=== PATIENT | female | born 1955 | race Caucasian/White ===

== ENCOUNTER → 2016-06-04 | Outpatient (CLI) | payer OTHER ==
[~2016-06-04] MED LIST: CHOL100040 PO; CLON0.5T3 PO; CYAN10005 PO; CYCL10TA6 PO; DULO-24 PO; ESTR0.0510 TD; FRS/40 PO; GLC/500 PO; LAMO100T16 PO; LEVO200T6 PO; LOSA50TA6 PO; METHYL FOLATE PO; NAPR1TAB9 PO; OXCA300T PO; OXCA600T2 PO; POLYSOL50 OPL; PRED1SUS3 OPL; SPIR50TA2 PO; TRAM-10 PO; TRAZ100T29 PO; VALA1TAB2 PO; ZNTT/150 PO; ZOLP10TA6 PO
[2016-06-04 11:54] LABS: URINE APPEARANCE CLEAR (CLEAR); URINE BILIRUBIN NEG (NEG); URINE COLOR DK YELLOW; URINE NITRITE NEG (NEG); URINE PH 7.5 (4.5-7.5); URINE SPECIFIC GRAVITY 1.028 (1.000-1.030); UROBILINOGEN NEG (NEG)
[2016-06-04 12:00] LABS: MANUAL MICROSCOPIC REQUIRED? NO; REVIEW REQ? NO
== END | disposition home or self-care (01) ==
LOC: C.LABSPEC 11:23
PROVIDERS: ATTEND Obstetrics & Gynecology
DX: N89.8 Other specified noninflammatory disorders of vagina (principal); R39.9 Unspecified symptoms and signs involving the genitourinary system

== ENCOUNTER → 2016-06-16 | Outpatient (CLI) | payer OTHER ==
--- NOTE | 2016-06-16 12:33 | DIAGNOSTIC IMAGING REPORT ---
THYROID ULTRASONOGRAPHY CLINICAL HISTORY: Thyroid goiter COMPARISON STUDY: 07/25/2014 FINDINGS: The right lobe of the thyroid measures 4.9 x 1.5 x 1.3 cm. The left lobe measures 3.8 x 1.5 x 1.3 cm. There is a hypoechoic mid pole right lobe thyroid nodule measuring 5 x 5 x 3 mm. This has no suspicious characteristics. The previously described left lobe thyroid nodule is not delineated. There is slight heterogeneity of the gland echotexture, similar to the preceding study. IMPRESSION: Stable 5 mm right lobe thyroid nodule. No suspicious thyroid nodules are visualized. Electronically signed by: Rigoberto Rangel M.D. 06/16/2016 12:32 PM Dictated Date/Time: 06/16/2016 12:31 PM
== END | disposition home or self-care (01) ==
LOC: C.ULTR 11:42
PROVIDERS: ATTEND Internal Medicine Endocrinology, Diabetes & Metabolism
DX: E04.9 Nontoxic goiter, unspecified (principal)

== ENCOUNTER → 2017-05-14 | Outpatient (CLI) | payer OTHER | END | disposition home or self-care (01) | LOC: C.LABSPEC 17:31 | PROVIDERS: ATTEND Physician Assistant | DX: R30.0 Dysuria (principal); L29.8 Other pruritus ==

== ENCOUNTER → 2017-05-15 | Outpatient (CLI) | payer OTHER | END | disposition home or self-care (01) | LOC: C.LAB1850 11:01 | PROVIDERS: ATTEND Internal Medicine Endocrinology, Diabetes & Metabolism | DX: E03.9 Hypothyroidism, unspecified (principal) ==

== ENCOUNTER 2017-09-02 14:53 | Observation (INO) | payer OTHER ==
[~2017-09-02] VITALS: Ht 174 cm; Wt 101.6 kg
[~2017-09-02 14:53] MED LIST changes: +RANI150T85 PO; -ZNTT/150 PO
[2017-09-02] MEDS ORDERED: ASPIRIN 81 MG CHEW PO STA (15:26)
[2017-09-02 16:04] LABS: BASO % 0.3 %; BASO ABS # 0.03 K/uL (0-0.2); EOS % 1.3 %; EOS ABS # 0.12 K/uL (0-0.5); HEMATOCRIT 39.7 % (37-47); HEMOGLOBIN 13.7 g/dL (12.0-16.0); IG# 0.02 K/uL (0.00-0.02); LYMPH % 23.4 %; LYMPH ABS # 2.08 K/uL (1.2-3.4); MEAN CELL VOLUME 88.8 fL (80-100); MEAN CORPUSCULAR HEMOGLOBIN 30.6 pg (25-34); MEAN CORPUSCULAR HGB CONC 34.5 g/dl (32-36); MEAN PLATELET VOLUME 9.6 fL (7.4-10.4); MONO % 5.8 %; MONO ABS # 0.52 K/uL (0.11-0.59); NEUT ABS # 6.13 K/uL (1.4-6.5); PLATELET COUNT 244 K/uL (130-400); RED CELL DISTRIBUTION WIDTH CV 13.4 % (11.5-14.5); RED CELL DISTRIBUTION WIDTH SD 43.7 fL (36.4-46.3)
[2017-09-02 16:35] LABS: BLOOD UREA NITROGEN 14 mg/dl (7-18); CALCIUM 9.3 mg/dl (8.5-10.1); CARBON DIOXIDE 28 mmol/L (21-32); CREATININE 0.83 mg/dl (0.60-1.20); GLUCOSE 134 mg/dl (70-99); POTASSIUM 3.9 mmol/L (3.5-5.1); SODIUM 138 mmol/L (136-145)
[2017-09-02] MEDS ORDERED: CYAN1CAP4 PO (16:47)
[2017-09-02] MEDS ORDERED: 5-ME1POW15 PO (16:47)
[2017-09-02] MEDS ORDERED: CHOL1TAB12 PO (16:47)
[2017-09-02] MEDS ORDERED: ESCI10TA17 PO (16:47)
[2017-09-02] MEDS ORDERED: ZOLP5TAB6 PO (16:47)
[2017-09-02] MEDS ORDERED: LEVO175T PO (16:47)
--- NOTE | 2017-09-02 16:56 | DIAGNOSTIC IMAGING REPORT ---
LEFT LOWER EXTREMITY VENOUS DOPPLER HISTORY: Left leg swelling. COMPARISON STUDY: None. FINDINGS: There is normal compressibility, flow, and augmentation within the left lower extremity deep venous system. IMPRESSION: No DVT within the left lower extremity. Electronically signed by: Prashanth Bansal M.D. 09/02/2017 4:55 PM Dictated Date/Time: 09/02/2017 4:55 PM
--- NOTE | 2017-09-02 17:24 | EMERGENCY ROOM VISIT NOTE ---
History Report prepared by Marylu: Feliz Martinez Under the Supervision of: Dr. Arcenio Shaver M.D. First contact with patient: 15:23 Chief Complaint: SHORTNESS OF BREATH Stated Complaint: LEFT CALF PAIN, SOB, CHEST PAIN, REFERRED Nursing Triage Summary: triage note: Pt reports pain in left calf and shortness of breath since thursday. History of Present Illness The patient is a 62 year old female who presents to the Emergency Room with complaints of constant left calf pain beginning three days ago. She also complains of shortness of breath and left-sided chest pain. No radiation of the chest pain. Chest pain feels like pressure, moderate in nature. The patient was seen at an urgent care center and was referred to the ED for further evaluation. She believes she has a family history of blood clots. The patient denies modifying factors. She has a history of diabetes and hyperthyroidism. She denies recent travel. She is on an estrogen patch. No hemoptysis.the patient denies cough. Source of History: patient Onset: Three days ago Position: leg (left calf) Timing: constant Modifying Factors (Worsening): other (none) Modifying Factors (Relieving): other (none) Associated Symptoms: + chest pain (left-sided), + SOB, No cough Review of Systems See HPI for pertinent positives and negatives. A total of ten systems were reviewed and were otherwise negative. Past Medical & Surgical Medical Problems: (1) Anxiety (2) Anxiety (3) Arthritis, rheumatoid (4) Costochondritis (5) Depression (6) Diabetes (7) Fibromyalgia (8) HLD (hyperlipidemia) (9) HTN (hypertension) (10) Insomnia Surgical Problems: (1) H/O arthroscopic knee surgery (2) S/P hysterectomy (3) S/P knee replacement Family History No pertinent family history stated. Social History Smoking Status: Never Smoker Alcohol Use: none Marital Status: single Occupation Status: disabled Current/Historical Medications Scheduled 5-Methyltetrahydrofolate (Bulk (Methyl Folate), 15,000 MCG PO QAM Cholecalciferol (Vitamin D3), 3,000 UNITS PO QAM Cyanocobalamin (B-12), 5,000 MCG PO QAM Escitalopram (Lexapro), 10 MG PO DAILY Estradiol (Estradiol Transdermal System), 1 PATCH TD WK Lamotrigine (Lamictal), 100 MG PO BID Levothyroxine Sodium (Synthroid), 175 MCG PO QAM Losartan Potassium (Cozaar), 50 MG PO QAM Metformin Hcl (Glucophage), 1,000 MG PO BID Spironolactone (Aldactone), 50 MG PO QAM Trazodone Hcl (Trazodone), 150 MG PO HS Zolpidem Tartrate (Zolpidem Tartrate), 5 MG PO HS Scheduled PRN Cyclobenzaprine Hcl (Flexeril), 10 MG PO TID PRN for Muscle Spasms Furosemide (Lasix), 40 MG PO QAM PRN for FLUID RETENTION Naproxen (Aleve), 220 MG PO DAILY PRN for Pain Ranitidine (Zantac), 150 MG PO DAILY PRN for Indigestion Tramadol (Ultram), 50 MG PO Q6HR PRN PRN for Pain Valacyclovir Hcl (Valtrex), 1,000 MG PO HS PRN for OUTBREAK Allergies Coded Allergies: Buspirone (Verified Allergy, Severe, DYSPNEA, 09/02/17) Gabapentin (Verified Adverse Reaction, Severe, DIFFICULTY WALKING AND PAIN , 09/02/17) [place] (Verified Adverse Reaction, Severe, TOXIC, 09/02/17) Aripiprazole (Verified Adverse Reaction, Intermediate, UNCONTROLLABLE MUSCLE MOVEMENT, 09/02/17) Codeine (Verified Adverse Reaction, Intermediate, UPSET STOMACH, 09/02/17) Levofloxacin (Verified Adverse Reaction, Intermediate, MUSCLE PAIN; HEMATURIA, 09/02/17) Ziprasidone (Verified Adverse Reaction, Intermediate, UNCONTROLLABLE MUSCLE MOVEMENT, 09/02/17) Simvastatin (Verified Adverse Reaction, Mild, MUSCLE ACHES AND CRAMPING, ) Physical Exam Vital Signs Date Time Temp Pulse Resp B/P (MAP) Pulse Ox O2 Delivery O2 Flow Rate FiO2 09/02/17 16:14 82 09/02/17 16:00 86 18 133/79 96 Room Air 09/02/17 15:54 98 Room Air 09/02/17 15:54 98 Room Air 09/02/17 14:57 36.8 85 20 136/85 99 Room Air 09/02/17 14:56 99 Room Air Physical Exam Physical Exam GENERAL: She is oriented to person, place, and time. She appears well- developed and well-nourished. She does not appear distressed. ____ HENT: Exam performed. Head: Normocephalic and atraumatic. Right Ear: External ear normal. No mastoid tenderness. Left Ear: External ear normal. No mastoid tenderness. Mouth/Throat: The oropharynx is clear and moist. No trismus in the jaw. No dental abscesses or uvula swelling. No oropharyngeal exudate or tonsillar abscesses. ____ EYES: Conjunctivae and EOM are normal. Pupils are equal, round, and reactive to light. Right eye exhibits no discharge. Left eye exhibits no discharge. No scleral icterus. ____ NECK: Normal range of motion. Neck supple. No JVD present. No spinous process tenderness present. No carotid bruit present. No rigidity. No tracheal deviation and normal range of motion present. No Brudzinski's sign and no Kernig 's sign noted. ____ CV: Normal rate, regular rhythm, normal heart sounds and intact distal pulses. There is no peripheral edema. Palpable radial pulses bue. ____ PULM/CHEST: Effort normal and breath sounds normal. No respiratory distress. No stridor. She has no wheezes. She has no rales. Chest Wall: She exhibits no tenderness. ____ ABD: The abdomen is soft. Bowel sounds are normal. She has no distension. No mass is present. There is no tenderness. There is no rebound, no guarding, no Espinoza's sign and no tenderness at McBurney's point. Rovsig negative MUSC/SKEL: Normal range of motion. There is no peripheral edema, tenderness or deformity. Pain on palpation of the left popliteal and left posterior thigh muscles. Palpable DP/PT pulses bilaterally. LYMPH: No cervical adenopathy. ____ NEURO: She is alert and oriented to person, place, and time. She has normal strength. No cranial nerve deficit or sensory deficit. Coordination and gait normal. GCS eye subscore is 4. GCS verbal subscore is 5. GCS motor subscore is 6. Cerebellar tests wnl. ____ SKIN: Skin is warm and dry. She is not diaphoretic. ____ PSYCH: She has a normal mood and affect. Her behavior is normal. Judgment and thought content normal. ____ Medical Decision & Procedures ER Provider Diagnostic Interpretation: Radiology results as stated below per my review and radiologist interpretation: LEFT LOWER EXTREMITY VENOUS DOPPLER FINDINGS: There is normal compressibility, flow, and augmentation within the left lower extremity deep venous system. IMPRESSION: No DVT within the left lower extremity. Electronically signed by: Prashanth Bansal M.D. 09/02/2017 4:55 PM Laboratory Results 09/02/17 15:45 Red Blood Count 4.47, Mean Corpuscular Volume 88.8, Mean Corpuscular Hemoglobin 30.6, Mean Corpuscular Hemoglobin Concent 34.5, Mean Platelet Volume 9.6, Neutrophils (%) (Auto) 69.0, Lymphocytes (%) (Auto) 23.4, Monocytes (%) (Auto) 5.8, Eosinophils (%) (Auto) 1.3, Basophils (%) (Auto) 0.3, Neutrophils # (Auto) 6.13, Lymphocytes # (Auto) 2.08, Monocytes # (Auto) 0.52, Eosinophils # (Auto) 0.12, Basophils # (Auto) 0.03 09/02/17 15:45 Test 09/02/17 15:45 White Blood Count 8.90 K/uL (4.8-10.8) Red Blood Count 4.47 M/uL (4.2-5.4) Hemoglobin 13.7 g/dL (12.0-16.0) Hematocrit 39.7 % (37-47) Mean Corpuscular Volume 88.8 fL (80-100) Mean Corpuscular Hemoglobin 30.6 pg (25-34) Mean Corpuscular Hemoglobin Concent 34.5 g/dl (32-36) Platelet Count 244 K/uL (130-400) Mean Platelet Volume 9.6 fL (7.4-10.4) Neutrophils (%) (Auto) 69.0 % Lymphocytes (%) (Auto) 23.4 % Monocytes (%) (Auto) 5.8 % Eosinophils (%) (Auto) 1.3 % Basophils (%) (Auto) 0.3 % Neutrophils # (Auto) 6.13 K/uL (1.4-6.5) Lymphocytes # (Auto) 2.08 K/uL (1.2-3.4) Monocytes # (Auto) 0.52 K/uL (0.11-0.59) Eosinophils # (Auto) 0.12 K/uL (0-0.5) Basophils # (Auto) 0.03 K/uL (0-0.2) RDW Standard Deviation 43.7 fL (36.4-46.3) RDW Coefficient of Variation 13.4 % (11.5-14.5) Immature Granulocyte % (Auto) 0.2 % Immature Granulocyte # (Auto) 0.02 K/uL (0.00-0.02) D-Dimer 330 ug/L FEU (0-500) Anion Gap 6.0 mmol/L (3-11) Est Creatinine Clear Calc Drug Dose 86.1 ml/min Estimated GFR () 86.4 Estimated GFR (Non- 74.5 BUN/Creatinine Ratio 17.1 (10-20) Calcium Level 9.3 mg/dl (8.5-10.1) Total Creatine Kinase 137 U/L (26-192) Troponin I < 0.015 ng/ml (0-0.045) Pro-B-Type Natriuretic Peptide 15 pg/ml (0-900) Laboratory results reviewed by me Medications Administered Medications (Trade) Dose Ordered Sig/Claudia Route Start Time Stop Time Status Last Admin Dose Admin Aspirin (Aspirin Chew) 324 mg NOW STAT PO 09/02/17 15:26 09/02/17 15:28 DC 09/02/17 15:35 324 MG ECG Per My Interpretation Indication: chest pain Rate (beats per minute): 84 Rhythm: sinus rhythm Findings: other (NV, QRS and QTC intervals within normal limits. No ST elevations or depressions. ) ED Course 1525: The patient was evaluated in room B3B. A complete history and physical exam was performed. 1526: Ordered Aspirin Chew 324 mg PO. 1715: The patient's vitals are stable. Physical exam within normal limits. Labs , and US within normal limits. Given the patient's chest pain, SOB, and significant past medical history (including HTN, HLD, diabetes, and no stress test within the past eight years), the patient will be admitted for chest pain rule out. Medical Decision The patient's vitals are stable. Physical exam within normal limits. Labs, and US within normal limits. Given the patient's chest pain, SOB, and significant past medical history (including HTN, HLD, diabetes, and no stress test within the past eight years), the patient will be admitted for chest pain rule out. Medication Reconcilliation Current Medication List: was personally reviewed by me Blood Pressure Screening Patient's blood pressure: Elevated blood pressure Blood pressure disposition: Elevated BP felt to be situational Consults Time Called: 1714 Consulting Physician: Dr. Raz Santos Hospitalist Returned Call: 1717 Discussed the patient's case. The patient will be evaluated for further treatment and disposition. Impression Primary Impression: Chest pain Scribe Attestation The scribe's documentation has been prepared under my direction and personally reviewed by me in its entirety. I confirm that the note above accurately reflects all work, treatment, procedures, and medical decision making performed by me. The chart was completed utilizing [employer] Speech voice recognition software. Grammatical errors, random word insertions, pronoun errors, and incomplete sentences are an occasional consequence of this system due to software limitations, ambient noise, and hardware issues. Any formal questions or concerns about the content, text, or information contained within the body of this dictation should be directly addressed to the physician for clarification. Departure Information Dispostion Being Evaluated By Hospitalist Referrals Lurdes Terrazas M.D. (PCP) Patient Instructions My [facility] Problem Qualifiers Primary Impression: Chest pain Chest pain type: unspecified Qualified Codes: R07.9 - Chest pain, unspecified
[2017-09-02] MEDS ORDERED: GLUCOSE 10 TABS/TUBE PO PRN (18:15)
[2017-09-02] MEDS ORDERED: DEXTROSE 50% 50 ML SYR IV PRN (18:15)
[2017-09-02] MEDS ORDERED: CARBOHYDRATES FOR HYPOGLYCEMIA PO PRN (18:15)
[2017-09-02] MEDS ORDERED: GLUCAGON FOR INJ 1 MG VIAL SQ PRN (18:15)
[2017-09-02] MEDS ORDERED: RANITIDINE HCL 150 MG TAB PO PRN (18:15)
[2017-09-02] MEDS ORDERED: FUROSEMIDE 40 MG TAB PO PRN (18:15)
[2017-09-02] MEDS ORDERED: TRAMADOL HCL 50 MG TAB PO PRN (18:15)
[2017-09-02] MEDS ORDERED: GLUCOSE 40% GEL 15 GM TUBE PO PRN (18:15)
--- NOTE | 2017-09-02 18:19 | DIAGNOSTIC IMAGING REPORT ---
CHEST 2 VIEWS ROUTINE HISTORY: 62 years-old Female cp acute atypical chest pain COMPARISON: Chest radiograph 08/23/2013 TECHNIQUE: PA and lateral views of the chest FINDINGS: Cardiomediastinal and hilar silhouettes are within normal limits. Atherosclerosis of the aorta. There is no pneumothorax, pleural effusion, focal airspace consolidation or overt pulmonary edema. Degenerative changes of the shoulders and spine are noted. IMPRESSION: No acute process. The above report was generated using voice recognition software. It may contain grammatical, syntax or spelling errors. Electronically signed by: Jay Garg M.D. 09/02/2017 6:18 PM Dictated Date/Time: 09/02/2017 6:17 PM
[2017-09-02] MEDS ORDERED: IV FLUIDS COMPLETED PRN (18:30)
[2017-09-02 19:40] VITALS: O2SAT 96
--- NOTE | 2017-09-02 19:47 | History and Physical ---
History & Physical Date & Time of Service: September 02, 2017 at 19:44 Chief Complaint: Chest Pain Primary Care Physician: Lurdes Terrazas M.D. History of Present Illness Source: patient The patient is a 62 year old female who presents to the Emergency Room with complaints of constant left calf pain beginning three days ago. Ultrasound lower extremity negative for DVT. Patient reports that with the calf pain she also had chest pain. CXR unremarkable. Patient points to mid sternum where the chest pain is. She is unsure whether the pain is musculoskeletal in nature or related to anxiety. She has stress test but that was back in 2008. Patient also taking Lasix and Spirolactone for lower extremity edema which she reports is due to her psych medication causing fluid retention. Given cardiovascular risk factors such as diabetes, ER physician recommended that patient be evaluated further for rule out acute coronary syndrome. Past Medical/Surgical History Medical Problems: (1) Anxiety (2) Anxiety (3) Arthritis, rheumatoid (4) Costochondritis (5) Depression (6) Diabetes (7) Fibromyalgia (8) HLD (hyperlipidemia) (9) HTN (hypertension) (10) Insomnia Surgical Problems: (1) H/O arthroscopic knee surgery (2) S/P hysterectomy (3) S/P knee replacement Social History Smoking Status: Never Smoker Marital Status: single Housing status: lives with family Occupational Status: disabled Immunizations History of Influenza Vaccine: N/A History of Tetanus Vaccine?: Yes History of Pneumococcal: Yes Pneumococcal Date: Nov 11, 2005 History of Hepatitis B Vaccine: No Allergies Coded Allergies: Buspirone (Verified Allergy, Severe, DYSPNEA, 09/02/17) Gabapentin (Verified Adverse Reaction, Severe, DIFFICULTY WALKING AND PAIN , 09/02/17) [place] (Verified Adverse Reaction, Severe, TOXIC, 09/02/17) Aripiprazole (Verified Adverse Reaction, Intermediate, UNCONTROLLABLE MUSCLE MOVEMENT, 09/02/17) Codeine (Verified Adverse Reaction, Intermediate, UPSET STOMACH, 09/02/17) Levofloxacin (Verified Adverse Reaction, Intermediate, MUSCLE PAIN; HEMATURIA, 09/02/17) Ziprasidone (Verified Adverse Reaction, Intermediate, UNCONTROLLABLE MUSCLE MOVEMENT, 09/02/17) Simvastatin (Verified Adverse Reaction, Mild, MUSCLE ACHES AND CRAMPING, ) Home Medications Scheduled 5-Methyltetrahydrofolate (Bulk (Methyl Folate), 15,000 MCG PO QAM Cholecalciferol (Vitamin D3), 3,000 UNITS PO QAM Cyanocobalamin (B-12), 5,000 MCG PO QAM Escitalopram (Lexapro), 10 MG PO DAILY Estradiol (Estradiol Transdermal System), 1 PATCH TD WK Lamotrigine (Lamictal), 100 MG PO BID Levothyroxine Sodium (Synthroid), 175 MCG PO QAM Losartan Potassium (Cozaar), 50 MG PO QAM Metformin Hcl (Glucophage), 1,000 MG PO BID Spironolactone (Aldactone), 50 MG PO QAM Trazodone Hcl (Trazodone), 150 MG PO HS Zolpidem Tartrate (Zolpidem Tartrate), 5 MG PO HS Scheduled PRN Cyclobenzaprine Hcl (Flexeril), 10 MG PO TID PRN for Muscle Spasms Furosemide (Lasix), 40 MG PO QAM PRN for FLUID RETENTION Naproxen (Aleve), 220 MG PO DAILY PRN for Pain Ranitidine (Zantac), 150 MG PO DAILY PRN for Indigestion Tramadol (Ultram), 50 MG PO Q6HR PRN PRN for Pain Valacyclovir Hcl (Valtrex), 1,000 MG PO HS PRN for OUTBREAK Review of Systems Constitutional: No fever Eyes: No worsening of vision, No eye pain ENT: No hearing loss, No sore throat Respiratory: No cough, No sputum, No wheezing, No shortness of breath Cardiovascular: + chest pain, + edema, No palpitations Abdomen: No pain, No nausea, No vomiting, No diarrhea, No constipation Musculoskeletal: + problem reported (left thigh pain) Genitourinary - Female: No dysuria Neurologic: No numbness/tingling Psychiatric: No substance abuse Endocrine: No fatigue Hematologic / Lymphatic: No abnormal bleeding/bruising Integumentary: No rash, No itch Physical Exam Vital Signs Date Time Temp Pulse Resp B/P (MAP) Pulse Ox O2 Delivery O2 Flow Rate FiO2 09/02/17 19:20 72 99 09/02/17 18:20 76 17 116/98 99 Room Air 09/02/17 16:14 82 09/02/17 16:00 86 18 133/79 96 Room Air 09/02/17 15:54 98 Room Air 09/02/17 15:54 98 Room Air 09/02/17 14:57 36.8 85 20 136/85 99 Room Air 09/02/17 14:56 99 Room Air General Appearance: no apparent distress Head: normocephalic, atraumatic Eyes: normal inspection, EOMI, sclerae normal ENT: normal ENT inspection, hearing grossly normal, pharynx normal Neck: supple, no JVD, trachea midline Respiratory/Chest: chest non-tender, lungs clear, normal breath sounds, no respiratory distress, no accessory muscle use Cardiovascular: regular rate, rhythm, no JVD, + pertinent finding (lower extremity edema bilaterally) Abdomen/GI: normal bowel sounds, non tender, soft Back: normal inspection, no CVA tenderness, no muscle spasm, normal range of motion Extremities/Musculoskelatal: normal inspection, no calf tenderness, + swelling (lower extremities) Neurologic/Psych: no motor/sensory deficits, alert, normal mood/affect, oriented x 3 Skin: normal color, warm/dry, no rash Diagnostics Laboratory Results Results Past 24 Hours Test 09/02/17 15:45 Range/Units White Blood Count 8.90 4.8-10.8 K/uL Red Blood Count 4.47 4.2-5.4 M/uL Hemoglobin 13.7 12.0-16.0 g/dL Hematocrit 39.7 37-47 % Mean Corpuscular Volume 88.8 80-100 fL Mean Corpuscular Hemoglobin 30.6 25-34 pg Mean Corpuscular Hemoglobin Concent 34.5 32-36 g/dl Platelet Count 244 130-400 K/uL Mean Platelet Volume 9.6 7.4-10.4 fL Neutrophils (%) (Auto) 69.0 % Lymphocytes (%) (Auto) 23.4 % Monocytes (%) (Auto) 5.8 % Eosinophils (%) (Auto) 1.3 % Basophils (%) (Auto) 0.3 % Neutrophils # (Auto) 6.13 1.4-6.5 K/uL Lymphocytes # (Auto) 2.08 1.2-3.4 K/uL Monocytes # (Auto) 0.52 0.11-0.59 K/uL Eosinophils # (Auto) 0.12 0-0.5 K/uL Basophils # (Auto) 0.03 0-0.2 K/uL RDW Standard Deviation 43.7 36.4-46.3 fL RDW Coefficient of Variation 13.4 11.5-14.5 % Immature Granulocyte % (Auto) 0.2 % Immature Granulocyte # (Auto) 0.02 0.00-0.02 K/uL D-Dimer 330 0-500 ug/L FEU Sodium Level 138 136-145 mmol/L Potassium Level 3.9 3.5-5.1 mmol/L Chloride Level 104 98-107 mmol/L Carbon Dioxide Level 28 21-32 mmol/L Anion Gap 6.0 3-11 mmol/L Blood Urea Nitrogen 14 7-18 mg/dl Creatinine 0.83 0.60-1.20 mg/dl Est Creatinine Clear Calc Drug Dose 86.1 ml/min Estimated GFR () 86.4 Estimated GFR (Non- 74.5 BUN/Creatinine Ratio 17.1 10-20 Random Glucose 134 70-99 mg/dl Calcium Level 9.3 8.5-10.1 mg/dl Total Creatine Kinase 137 26-192 U/L Troponin I < 0.015 0-0.045 ng/ml Pro-B-Type Natriuretic Peptide 15 0-900 pg/ml Impression Assessment and Plan Chest pain -may be musculoskeletal -EKG NSR and comparable to August 2013, initial Troponin negative -rule out Acute coronary syndrome given cardiac risk factors, trend troponin, monitor on telemetry, and obtain cardiac echocardiogram -continue outpatient medication of Lasix, spirolactone, losartan, statin, aspirin Diabetes -check Hba1c -hold home dose metformin -sliding scale insulin Hypothyroid history -check TSH -Continue home dose Levothyroxine Left Calf pain -No DVT within the left lower extremity -can place warm compress if musculoskeletal pain History of fibromyalgia: Tramadol History of Herpes: Valacyclovir as needed History of Bipolar Disorder: Continue Lexapro, Lamictal DVT ppx: Lovenox FULL Code Patient's Werner Schaeffer [phone] Resuscitation Status VTE Prophylaxis Will order VTE Prophylaxis: Yes
[2017-09-02 19:53] VITALS: BP 125/84; PULSE 77; TEMP 36.7; O2SAT 91
[2017-09-02 20:04] VITALS: BP 145/82; PULSE 76; TEMP 37; O2SAT 96; Ht 174 cm; Wt 101.6 kg
[2017-09-02 20:30] LABS: PTT PATIENT 26.8 SECONDS (21.0-31.0)
[2017-09-02] MEDS: INSULIN ASPART 100 UNITS/ML 3 ML PEN SC SCH (21:00)
[2017-09-02] MEDS ORDERED: ENOXAPARIN 40 MG/0.4 ML SYR SC SCH (21:00)
[2017-09-02] MEDS ORDERED: TRAZODONE HCL 100 MG TAB PO ONE (21:39)
[2017-09-02] MEDS ORDERED: ZOLPIDEM TARTRATE 5 MG TAB PO ONE (21:39)
[2017-09-02] MEDS ORDERED: CYCLOBENZAPRINE HCL 10 MG TAB PO PRN (21:45)
[2017-09-02] MEDS ORDERED: LURASIDONE HCL 40 MG TAB PO STA (21:57)
[2017-09-03 00:13] VITALS: BP 108/64; PULSE 78; TEMP 36.6; O2SAT 96
[2017-09-03 04:09] LABS: BASO % 0.6 %; BASO ABS # 0.04 K/uL (0-0.2); EOS % 2.4 %; EOS ABS # 0.17 K/uL (0-0.5); HEMATOCRIT 38.7 % (37-47); HEMOGLOBIN 13.2 g/dL (12.0-16.0); IG# 0.01 K/uL (0.00-0.02); LYMPH % 39.5 %; LYMPH ABS # 2.75 K/uL (1.2-3.4); MEAN CELL VOLUME 89.8 fL (80-100); MEAN CORPUSCULAR HEMOGLOBIN 30.6 pg (25-34); MEAN CORPUSCULAR HGB CONC 34.1 g/dl (32-36); MONO % 7.2 %; NEUT % 50.2 %; PLATELET COUNT 229 K/uL (130-400); RED CELL DISTRIBUTION WIDTH CV 13.4 % (11.5-14.5); WHITE BLOOD COUNT 6.97 K/uL (4.8-10.8)
[2017-09-03 04:12] VITALS: BP 101/63; PULSE 75; TEMP 36.6; O2SAT 97
[2017-09-03 04:59] LABS: ALBUMIN 3.5 gm/dl (3.4-5.0); ALKALINE PHOSPHATASE 44 U/L (45-117); ALT/SGPT 18 U/L (12-78); BLOOD UREA NITROGEN 13 mg/dl (7-18); CALCIUM 8.6 mg/dl (8.5-10.1); CARBON DIOXIDE 30 mmol/L (21-32); CREATININE 0.81 mg/dl (0.60-1.20); GLUCOSE 103 mg/dl (70-99); SODIUM 140 mmol/L (136-145); TOTAL PROTEIN 7.2 gm/dl (6.4-8.2)
[2017-09-03] MEDS ORDERED: LEVOTHYROXINE 175 MCG TAB PO SCH (06:00)
[2017-09-03 06:59] VITALS: BP 107/69; PULSE 76; TEMP 36.7; O2SAT 98
[2017-09-03] MEDS: INSULIN ASPART 100 UNITS/ML 3 ML PEN SC SCH ×3 (07:00→16:15)
[2017-09-03 07:08] LABS: HEMOGLOBIN A1C 6.5 % (4.5-5.6)
[2017-09-03 07:38] LABS: POTASSIUM 4.3 mmol/L (3.5-5.1)
[2017-09-03] MEDS ORDERED: SPIRONOLACTONE 25 MG TAB PO SCH (09:00)
[2017-09-03] MEDS ORDERED: ESCITALOPRAM OXALATE 10 MG TAB PO SCH (09:00)
[2017-09-03] MEDS ORDERED: LOSARTAN POTASSIUM 50 MG TAB PO SCH (09:00)
[2017-09-03 11:56] VITALS: BP 127/85; PULSE 76; TEMP 36.6; O2SAT 96
[2017-09-03] MEDS ORDERED: PERFLUTREN LIPID MICROSPHERE (DEFINITY) IV ONE (15:26)
[2017-09-03 15:38] VITALS: BP 122/78; PULSE 74; TEMP 36.8; O2SAT 99
--- NOTE | 2017-09-03 16:16 | ECHOCARDIOGRAM REPORT ---
*NOTICE TO RECEIVING DEMOCRAT AGENCY This information is strictly Confidential and protected under [place] law. [place] law prohibits you from making any further disclosure of this information unless further disclosure is expressly permitted by the written consent of the person to whom it pertains or is authorized by law. A general authorization for the release of medical or other information is not sufficient for this purpose. Hospital accepts no responsibility if the information is made available to any other person, INCLUDING THE PATIENT. Interpretation Summary * Name: ROZINA POSADA Study Date: 09/03/2017 12:38 PM BP: 127/85 mmHg * Patient Location: C.2T\S\S237\S\1 HR: 76 * : 1955 (M/d/yyyy) Gender: Female Height: 68 in * Age: 62 yrs Ethnicity: [place] Weight: 223 lb * Ordering Physician: Jl Crandall * Referring Physician: Self, Referred * Performed By: Keisha Grigsby RDCS * * Reason For Study: Chest Pain * BSA: 2.1 m2 * -- Conclusions -- * The left ventricle is normal in size. * The left ventricular wall motion is normal. * Ejection Fraction = 60-65%. * The right ventricular systolic function is normal. * The left atrial size is normal. * Right atrial size is normal. * No significant valvular pathology. Procedure Details * A complete two-dimensional transthoracic echocardiogram was performed (2D, M-mode, Doppler and color flow Doppler). * A contrast injection of Definity was performed to improve assessment of LV function. * Contrast was injected into an intravenous site in the right arm. * One vial of Definity ultrasound contrast was diluted in normal saline to a total volume of 10 ml. A total of '2' ml of solution was administered during imaging. * Lot # [id number] of Definity utilized for procedure. * Expiration date 1APR19. * The attending nurse who injected the contrast agent was Doris Rivero RN. Left Ventricle * The left ventricle is normal in size. * There is normal left ventricular wall thickness. * Ejection Fraction = 60-65%. * The left ventricular wall motion is normal. Right Ventricle * The right ventricle is normal size. * The right ventricular systolic function is normal. Atria * The left atrial size is normal. * Right atrial size is normal. * No ASD detected; PFO is not assessed. Mitral Valve * The mitral valve anatomy is normal. * There is mild mitral regurgitation. Tricuspid Valve * The tricuspid valve anatomy is normal. * Significant tricuspid regurgitation is absent. Aortic Valve * The aortic valve is normal in structure and function. Pulmonic Valve * The pulmonic valve is not well visualized. * There is no significant pulmonary regurgitation. Great Vessels * The aortic root and proximal ascending aorta are normal sized. Pericardium/Pleural * There is no pericardial effusion. MMode 2D Measurements and Calculations IVSd 1.1 cm IVSs 1.2 cm LVIDd 5.1 cm LVIDs 3.0 cm LVPWd 1.0 cm LVPWs 1.6 cm IVS/LVPW 1.1 FS 40.3 % EDV(Teich) 122.8 ml ESV(Teich) 35.9 ml EF(Teich) 70.7 % EDV(cubed) 131.2 ml ESV(cubed) 27.9 ml EF(cubed) 78.8 % % IVS thick 12.0 % % LVPW thick 60.1 % LV mass(C)d 195.2 grams LV mass(C)dI 91.2 grams/m\S\2 LV mass(C)s 142.2 grams LV mass(C)sI 66.4 grams/m\S\2 SV(Teich) 86.8 ml SI(Teich) 40.6 ml/m\S\2 SV(cubed) 103.3 ml SI(cubed) 48.3 ml/m\S\2 Ao root diam 3.0 cm Ao root area 6.9 cm\S\2 ACS 2.3 cm LA dimension 3.8 cm LA/Ao 1.3 LVAd ap4 27.5 cm\S\2 LVLd ap4 7.7 cm EDV(MOD-sp4) 86.9 ml EDV(sp4-el) 83.5 ml LVAs ap4 16.5 cm\S\2 LVLs ap4 7.0 cm ESV(MOD-sp4) 38.1 ml ESV(sp4-el) 33.1 ml EF(MOD-sp4) 56.1 % EF(sp4-el) 60.4 % LVAd ap2 28.8 cm\S\2 LVLd ap2 7.8 cm EDV(MOD-sp2) 96.0 ml EDV(sp2-el) 90.7 ml LVAs ap2 15.5 cm\S\2 LVLs ap2 6.8 cm ESV(MOD-sp2) 33.5 ml ESV(sp2-el) 30.1 ml EF(MOD-sp2) 65.1 % EF(sp2-el) 66.8 % LVLd %diff 0.77 % EDV(MOD-bp) 91.8 ml LVLs %diff -2.58 % ESV(MOD-bp) 36.2 ml EF(MOD-bp) 60.6 % SV(MOD-sp4) 48.8 ml SI(MOD-sp4) 22.8 ml/m\S\2 SV(MOD-sp2) 62.5 ml SI(MOD-sp2) 29.2 ml/m\S\2 SV(MOD-bp) 55.6 ml SI(MOD-bp) 26.0 ml/m\S\2 SV(sp4-el) 50.4 ml SI(sp4-el) 23.6 ml/m\S\2 SV(sp2-el) 60.6 ml SI(sp2-el) 28.3 ml/m\S\2 Doppler Measurements and Calculations MV E max gerald 58.2 cm/sec MV A max gerald 80.5 cm/sec MV E/A 0.72 MV dec time 0.26 sec Ao V2 max 136.8 cm/sec Ao max PG 7.5 mmHg Ao max PG (full) 3.3 mmHg LV V1 max PG 4.2 mmHg LV V1 max 101.9 cm/sec PA V2 max 138.2 cm/sec PA max PG 7.7 mmHg TR max gerald 193.9 cm/sec
[2017-09-03 17:10] VITALS: BP 122/78; PULSE 74; TEMP 36.8; O2SAT 99
--- NOTE | 2017-09-03 17:41 | Progress Note ---
Internal Med Progress Note Date of Service: September 03, 2017. Provider Documentation: SUBJECTIVE: Patient denies chest pain. Calf pain from yesterday improved OBJECTIVE: Exam: General- no distress Eyes- EOMI Neck- no JVD Lungs- CTABL, no wheezing Heart- Regular rate Abdomen- soft, nontender, + bowel sounds Extremities- no edema Neuro- awake and alert Lab data as noted below. ASSESSMENT & PLAN: Patient was evaluated in the hospital for left calf pain and chest pain. Left Calf pain -No DVT within the left lower extremity -can place warm compress if musculoskeletal pain Chest pain -may be musculoskeletal -EKG NSR and comparable to August 2013, initial Troponin negative -patient has acute coronary syndrome ruled out, negative troponins, was monitored on telemetry, normal echocardiogram Echocardiogram * The left ventricle is normal in size. * The left ventricular wall motion is normal. * Ejection Fraction = 60-65%. * The right ventricular systolic function is normal. * The left atrial size is normal. * Right atrial size is normal. * No significant valvular pathology. Left Ventricle * The left ventricle is normal in size. * There is normal left ventricular wall thickness. * Ejection Fraction = 60-65%. * The left ventricular wall motion is normal. Right Ventricle * The right ventricle is normal size. * The right ventricular systolic function is normal. Atria * The left atrial size is normal. * Right atrial size is normal. * No ASD detected; PFO is not assessed. Mitral Valve * The mitral valve anatomy is normal. * There is mild mitral regurgitation. Tricuspid Valve * The tricuspid valve anatomy is normal. * Significant tricuspid regurgitation is absent. Aortic Valve * The aortic valve is normal in structure and function. Pulmonic Valve * The pulmonic valve is not well visualized. * There is no significant pulmonary regurgitation. Great Vessels * The aortic root and proximal ascending aorta are normal sized. Pericardium/Pleural * There is no pericardial effusion. -continue outpatient medication of Lasix, spirolactone, losartan, statin, aspirin Diabetes - Hba1c 6.5 -continue home dose metformin Hypothyroid history -TSH is 0.04 which is low but relatively normal Total T3 1.01, free T4 1.33 -follow up with primary care doctor for Levothyroxine adjustments History of fibromyalgia: Tramadol History of Herpes: Valacyclovir as needed History of Bipolar Disorder: Continue Lexapro, Lamictal Discharge Instructions Follow up Appointment Diagnosis of noncardic chest pain, left calf pain likely muscular pain, hypothyroidism on Levothyroxine 09/08/2017 1:00 PM Cuong Campos, [facility] follow up with primary care doctor for Levothyroxine adjustments Vital Signs: Date Time Temp Pulse Resp B/P (MAP) Pulse Ox O2 Delivery O2 Flow Rate FiO2 09/03/17 17:10 36.8 74 18 99 Room Air 09/03/17 15:41 Room Air 09/03/17 15:38 36.8 74 18 122/78 (93) 99 Room Air 09/03/17 12:00 Room Air 09/03/17 11:56 36.6 76 16 127/85 (99) 96 Room Air 09/03/17 08:00 Room Air 09/03/17 06:59 36.7 76 20 107/69 (82) 98 Room Air 09/03/17 04:12 36.6 75 20 101/63 (76) 97 Room Air 09/03/17 04:00 Room Air 09/03/17 00:13 36.6 78 18 108/64 (79) 96 Room Air 09/03/17 00:01 Room Air 09/02/17 20:04 37.0 76 16 145/82 96 Room Air 09/02/17 19:53 36.7 77 20 125/84 (98) 91 Room Air 09/02/17 19:40 96 Room Air 09/02/17 19:20 72 99 09/02/17 18:20 76 17 116/98 99 Room Air Lab Results: Results Past 24 Hours Test 09/02/17 20:34 09/02/17 21:51 09/03/17 03:50 09/03/17 06:26 Range/Units Bedside Glucose 124 70-90 mg/dl Troponin I < 0.015 < 0.015 0-0.045 ng/ml Thyroid Stimulating Hormone (TSH) 0.040 0.300-4.500 uIu/ml White Blood Count 6.97 4.8-10.8 K/uL Red Blood Count 4.31 4.2-5.4 M/uL Hemoglobin 13.2 12.0-16.0 g/dL Hematocrit 38.7 37-47 % Mean Corpuscular Volume 89.8 80-100 fL Mean Corpuscular Hemoglobin 30.6 25-34 pg Mean Corpuscular Hemoglobin Concent 34.1 32-36 g/dl Platelet Count 229 130-400 K/uL Mean Platelet Volume 9.0 7.4-10.4 fL Neutrophils (%) (Auto) 50.2 % Lymphocytes (%) (Auto) 39.5 % Monocytes (%) (Auto) 7.2 % Eosinophils (%) (Auto) 2.4 % Basophils (%) (Auto) 0.6 % Neutrophils # (Auto) 3.50 1.4-6.5 K/uL Lymphocytes # (Auto) 2.75 1.2-3.4 K/uL Monocytes # (Auto) 0.50 0.11-0.59 K/uL Eosinophils # (Auto) 0.17 0-0.5 K/uL Basophils # (Auto) 0.04 0-0.2 K/uL RDW Standard Deviation 44.0 36.4-46.3 fL RDW Coefficient of Variation 13.4 11.5-14.5 % Immature Granulocyte % (Auto) 0.1 % Immature Granulocyte # (Auto) 0.01 0.00-0.02 K/uL Sodium Level 140 136-145 mmol/L Potassium Level 4.3 3.5-5.1 mmol/L Chloride Level 107 98-107 mmol/L Carbon Dioxide Level 30 21-32 mmol/L Anion Gap 3.0 3-11 mmol/L Blood Urea Nitrogen 13 7-18 mg/dl Creatinine 0.81 0.60-1.20 mg/dl Est Creatinine Clear Calc Drug Dose 88.5 ml/min Estimated GFR () 89.0 Estimated GFR (Non- 76.8 BUN/Creatinine Ratio 16.3 10-20 Random Glucose 103 70-99 mg/dl Calcium Level 8.6 8.5-10.1 mg/dl Total Bilirubin 0.5 0.2-1 mg/dl Aspartate Amino Transf (AST/SGOT) 15 15-37 U/L Alanine Aminotransferase (ALT/SGPT) 18 12-78 U/L Alkaline Phosphatase 44 45-117 U/L Total Protein 7.2 6.4-8.2 gm/dl Albumin 3.5 3.4-5.0 gm/dl Globulin 3.7 2.5-4.0 gm/dl Albumin/Globulin Ratio 0.9 0.9-2 Free Thyroxine 1.33 0.80-1.60 ng/dl Total Triiodothyronine 1.01 0.60-1.81 ng/ml Test 09/03/17 07:25 09/03/17 11:48 09/03/17 16:16 Range/Units Bedside Glucose 112 105 104 70-90 mg/dl
--- NOTE | 2017-09-03 17:54 | Discharge Instructions ---
Discharge Instructions Date of Service September 03, 2017. Admission Reason for Admission: Chest Pain Discharge Discharge Diagnosis / Problem: noncardic chest pain, left calf pain likely muscular pain, hypothyroidism o Discharge Goals Goal(s): Decrease discomfort Activity Recommendations Activity Limitations: per Instructions/Follow-up section . Instructions / Follow-Up Instructions / Follow-Up Patient was evaluated in the hospital for left calf pain and chest pain. Left Calf pain -No DVT within the left lower extremity -can place warm compress if musculoskeletal pain Chest pain -may be musculoskeletal -EKG NSR and comparable to August 2013, initial Troponin negative -patient has acute coronary syndrome ruled out, negative troponins, was monitored on telemetry, normal echocardiogram Echocardiogram * The left ventricle is normal in size. * The left ventricular wall motion is normal. * Ejection Fraction = 60-65%. * The right ventricular systolic function is normal. * The left atrial size is normal. * Right atrial size is normal. * No significant valvular pathology. Left Ventricle * The left ventricle is normal in size. * There is normal left ventricular wall thickness. * Ejection Fraction = 60-65%. * The left ventricular wall motion is normal. Right Ventricle * The right ventricle is normal size. * The right ventricular systolic function is normal. Atria * The left atrial size is normal. * Right atrial size is normal. * No ASD detected; PFO is not assessed. Mitral Valve * The mitral valve anatomy is normal. * There is mild mitral regurgitation. Tricuspid Valve * The tricuspid valve anatomy is normal. * Significant tricuspid regurgitation is absent. Aortic Valve * The aortic valve is normal in structure and function. Pulmonic Valve * The pulmonic valve is not well visualized. * There is no significant pulmonary regurgitation. Great Vessels * The aortic root and proximal ascending aorta are normal sized. Pericardium/Pleural * There is no pericardial effusion. -continue outpatient medication of Lasix, spirolactone, losartan, statin, aspirin Diabetes - Hba1c 6.5 -continue home dose metformin Hypothyroid history -TSH is 0.04 which is low but relatively normal Total T3 1.01, free T4 1.33 -follow up with primary care doctor for Levothyroxine adjustments History of fibromyalgia: Tramadol History of Herpes: Valacyclovir as needed History of Bipolar Disorder: Continue Lexapro, Lamictal Discharge Instructions Follow up Appointment Diagnosis of noncardic chest pain, left calf pain likely muscular pain, hypothyroidism on Levothyroxine 09/08/2017 1:00 PM Cuong Campos DO [facility] follow up with primary care doctor for Levothyroxine adjustments Current Hospital Diet Patient's current hospital diet: Diabetes Type 2 Diet, AHA Diet (Heart Healthy) Discharge Diet Recommended Diet: AHA Diet (Heart Healthy), Diabetes Type 2 Diet Pending Studies Studies pending at discharge: no Laboratory Results 09/03/17 03:50 Red Blood Count 4.31, Mean Corpuscular Volume 89.8, Mean Corpuscular Hemoglobin 30.6, Mean Corpuscular Hemoglobin Concent 34.1, Mean Platelet Volume 9.0, Neutrophils (%) (Auto) 50.2, Lymphocytes (%) (Auto) 39.5, Monocytes (%) (Auto) 7.2, Eosinophils (%) (Auto) 2.4, Basophils (%) (Auto) 0.6, Neutrophils # (Auto) 3.50, Lymphocytes # (Auto) 2.75, Monocytes # (Auto) 0.50, Eosinophils # (Auto) 0.17, Basophils # (Auto) 0.04 09/03/17 03:50 09/03/17 06:26 Test 09/02/17 15:45 09/02/17 21:51 09/03/17 03:50 09/03/17 06:26 Prothrombin Time 10.1 SECONDS (9.0-12.0) Prothromb Time International Ratio 1.0 (0.9-1.1) Activated Partial Thromboplast Time 26.8 SECONDS (21.0-31.0) Partial Thromboplastin Ratio 1.0 D-Dimer 330 ug/L FEU (0-500) Estimated Average Glucose 140 mg/dl Hemoglobin A1c 6.5 % (4.5-5.6) Total Creatine Kinase 137 U/L (26-192) Pro-B-Type Natriuretic Peptide 15 pg/ml (0-900) Thyroid Stimulating Hormone (TSH) 0.040 uIu/ml (0.300-4.500) White Blood Count 6.97 K/uL (4.8-10.8) Red Blood Count 4.31 M/uL (4.2-5.4) Hemoglobin 13.2 g/dL (12.0-16.0) Hematocrit 38.7 % (37-47) Mean Corpuscular Volume 89.8 fL (80-100) Mean Corpuscular Hemoglobin 30.6 pg (25-34) Mean Corpuscular Hemoglobin Concent 34.1 g/dl (32-36) Platelet Count 229 K/uL (130-400) Mean Platelet Volume 9.0 fL (7.4-10.4) Neutrophils (%) (Auto) 50.2 % Lymphocytes (%) (Auto) 39.5 % Monocytes (%) (Auto) 7.2 % Eosinophils (%) (Auto) 2.4 % Basophils (%) (Auto) 0.6 % Neutrophils # (Auto) 3.50 K/uL (1.4-6.5) Lymphocytes # (Auto) 2.75 K/uL (1.2-3.4) Monocytes # (Auto) 0.50 K/uL (0.11-0.59) Eosinophils # (Auto) 0.17 K/uL (0-0.5) Basophils # (Auto) 0.04 K/uL (0-0.2) RDW Standard Deviation 44.0 fL (36.4-46.3) RDW Coefficient of Variation 13.4 % (11.5-14.5) Immature Granulocyte % (Auto) 0.1 % Immature Granulocyte # (Auto) 0.01 K/uL (0.00-0.02) Anion Gap 3.0 mmol/L (3-11) Est Creatinine Clear Calc Drug Dose 88.5 ml/min Estimated GFR () 89.0 Estimated GFR (Non- 76.8 BUN/Creatinine Ratio 16.3 (10-20) Calcium Level 8.6 mg/dl (8.5-10.1) Total Bilirubin 0.5 mg/dl (0.2-1) Alanine Aminotransferase (ALT/SGPT) 18 U/L (12-78) Alkaline Phosphatase 44 U/L (45-117) Troponin I < 0.015 ng/ml (0-0.045) Total Protein 7.2 gm/dl (6.4-8.2) Albumin 3.5 gm/dl (3.4-5.0) Globulin 3.7 gm/dl (2.5-4.0) Albumin/Globulin Ratio 0.9 (0.9-2) Aspartate Amino Transf (AST/SGOT) 15 U/L (15-37) Free Thyroxine 1.33 ng/dl (0.80-1.60) Total Triiodothyronine 1.01 ng/ml (0.60-1.81) Test 09/03/17 16:16 Bedside Glucose 104 mg/dl (70-90) Hemoglobin A1c Test 09/02/17 15:45 Range/Units Estimated Average Glucose 140 mg/dl Hemoglobin A1c 6.5 H 4.5-5.6 % Medical Emergencies . Who to Call and When: Medical Emergencies: If at any time you feel your situation is an emergency, please call 911 immediately. . Non-Emergent Contact Non-Emergency issues call your: Primary Care Provider Call Non-Emergent contact if: you have any medication questions . . "Provider Documentation" section prepared by Jl Crandall. .
--- NOTE | 2017-09-03 17:55 | Discharge Summary ---
Discharge Summary Date of Service September 03, 2017. Discharge Summary Admission Date: September 02, 2017 at 18:06 Discharge Date: September 03, 2017 Discharge Disposition: Home Principal Diagnosis: noncardic chest pain, left calf pain likely muscular pain, hypothyroidism on Levothyroxine Admission Information HPI (per Admitting provider): The patient is a 62 year old female who presents to the Emergency Room with complaints of constant left calf pain beginning three days ago. Ultrasound lower extremity negative for DVT. Patient reports that with the calf pain she also had chest pain. CXR unremarkable. Patient points to mid sternum where the chest pain is. She is unsure whether the pain is musculoskeletal in nature or related to anxiety. She has stress test but that was back in 2008. Patient also taking Lasix and Spirolactone for lower extremity edema which she reports is due to her psych medication causing fluid retention. Given cardiovascular risk factors such as diabetes, ER physician recommended that patient be evaluated further for rule out acute coronary syndrome. Physical Exam (per Admitting): General Appearance: no apparent distress Head: normocephalic, atraumatic Eyes: normal inspection, EOMI, sclerae normal ENT: normal ENT inspection, hearing grossly normal, pharynx normal Neck: supple, no JVD, trachea midline Respiratory/Chest: chest non-tender, lungs clear, normal breath sounds, no respiratory distress, no accessory muscle use Cardiovascular: regular rate, rhythm, no JVD, + pertinent finding (lower extremity edema bilaterally) Abdomen/GI: normal bowel sounds, non tender, soft Back: normal inspection, no CVA tenderness, no muscle spasm, normal range of motion Extremities/Musculoskelatal: normal inspection, no calf tenderness, + swelling (lower extremities) Neurologic/Psych: no motor/sensory deficits, alert, normal mood/affect, oriented x 3 Skin: normal color, warm/dry, no rash Hospital Course Patient was evaluated in the hospital for left calf pain and chest pain. Left Calf pain -No DVT within the left lower extremity -can place warm compress if musculoskeletal pain Chest pain -may be musculoskeletal -EKG NSR and comparable to August 2013, initial Troponin negative -patient has acute coronary syndrome ruled out, negative troponins, was monitored on telemetry, normal echocardiogram Echocardiogram * The left ventricle is normal in size. * The left ventricular wall motion is normal. * Ejection Fraction = 60-65%. * The right ventricular systolic function is normal. * The left atrial size is normal. * Right atrial size is normal. * No significant valvular pathology. Left Ventricle * The left ventricle is normal in size. * There is normal left ventricular wall thickness. * Ejection Fraction = 60-65%. * The left ventricular wall motion is normal. Right Ventricle * The right ventricle is normal size. * The right ventricular systolic function is normal. Atria * The left atrial size is normal. * Right atrial size is normal. * No ASD detected; PFO is not assessed. Mitral Valve * The mitral valve anatomy is normal. * There is mild mitral regurgitation. Tricuspid Valve * The tricuspid valve anatomy is normal. * Significant tricuspid regurgitation is absent. Aortic Valve * The aortic valve is normal in structure and function. Pulmonic Valve * The pulmonic valve is not well visualized. * There is no significant pulmonary regurgitation. Great Vessels * The aortic root and proximal ascending aorta are normal sized. Pericardium/Pleural * There is no pericardial effusion. -continue outpatient medication of Lasix, spirolactone, losartan, statin, aspirin Diabetes - Hba1c 6.5 -continue home dose metformin Hypothyroid history -TSH is 0.04 which is low but relatively normal Total T3 1.01, free T4 1.33 -follow up with primary care doctor for Levothyroxine adjustments History of fibromyalgia: Tramadol History of Herpes: Valacyclovir as needed History of Bipolar Disorder: Continue Lexapro, Lamictal Discharge Instructions Follow up Appointment Diagnosis of noncardic chest pain, left calf pain likely muscular pain, hypothyroidism on Levothyroxine 09/08/2017 1:00 PM Cuong Campos DO [facility] follow up with primary care doctor for Levothyroxine adjustments Total time spent on discharge = 40 minutes This includes examination of the patient, discharge planning, medication reconciliation, and communication with other providers. Discharge Instructions see above
[2017-09-03] MEDS ORDERED: LURASIDONE HCL 40 MG TAB PO SCH (21:00)
[2017-09-03] MEDS ORDERED: TRAZODONE HCL 100 MG TAB PO SCH (21:00)
[2017-09-03] MEDS ORDERED: ZOLPIDEM TARTRATE 5 MG TAB PO SCH (21:00)
== END 2017-09-03 18:36 | disposition home or self-care (01) ==
LOC: C.EDB 14:53 → C.2T 18:06 → ENRESERV 18:29
PROVIDERS: ADMIT Hospitalist; ATTEND Hospitalist
DX: R07.89 Other chest pain (principal); M79.662 Pain in left lower leg; E03.9 Hypothyroidism, unspecified; Z79.899 Other long term (current) drug therapy; E11.9 Type 2 diabetes mellitus without complications; Z79.84 Long term (current) use of oral hypoglycemic drugs; M79.7 Fibromyalgia; F31.9 Bipolar disorder, unspecified; I10 Essential (primary) hypertension; Z96.659 Presence of unspecified artificial knee joint; Z90.710 Acquired absence of both cervix and uterus; Z88.1 Allergy status to other antibiotic agents; Z88.5 Allergy status to narcotic agent; Z88.8 Allergy status to other drugs, medicaments and biological substances

== ENCOUNTER 2020-01-10 05:26 | Observation (INO) ==
--- NOTE | 2019-12-20 16:19 | PAT Medication Instructions ---
Medication Instructions Date of Service December 20, 2019 Home Medications Medication Instructions Recorded Bryant Mcgee #1 ea 12/16/19 aspirin [Aspir-81] 81 mg PO QAM cyclobenzaprine 10 mg PO TID PRN diclofenac sodium [Voltaren] 1 dose TOPICAL UD PRN losartan [Cozaar] 50 mg PO QAM spironolactone [Aldactone] 50 mg PO QAM trazodone 150 mg PO PM cholecalciferol (vitamin D3) 75 mcg (3,000 unit) tablet 3,000 unit PO QAM cyanocobalamin (vitamin B-12) 1,000 mcg tablet 1,000 mcg PO QAM cetirizine 10 mg PO DAILY PRN escitalopram oxalate [Lexapro] 20 mg PO QAM dulaglutide 0.75 mg/0.5 mL subcutaneous pen injector 0.75 mg SQ WEEKLY fluconazole 150 mg tablet 150 mg PO WEEKLY PRN fluticasone propionate 50 mcg/actuation nasal spray,suspension 2 spray INTRANASAL DAILY PRN furosemide 40 mg tablet 40 mg PO DAILY PRN tramadol 50 mg tablet 50 mg PO TID PRN valacyclovir 1 gram tablet 1,000 mg PO DAILY PRN zolpidem 5 mg tablet 5 mg PO HS doxycycline hyclate 50 mg capsule 50 mg PO DAILY PRN metformin 500 mg tablet 1,500 mg PO BID metronidazole 1 % topical gel 1 applic TOPICAL BID PRN conjugated estrogens [Premarin] 0.625 mg PV DAILY PRN estradiol 0.25 mg PO QAM lamotrigine [Lamictal] 100 mg PO QAM lamotrigine [Lamictal] 150 mg PO HS levothyroxine 100 mcg PO QAM Continue as directed dulaglutide 0.75 mg/0.5 mL subcutaneous pen injector 0.75 mg SQ WEEKLY fluconazole 150 mg tablet 150 mg PO WEEKLY PRN (if needed) ASK your prescriber and surgeon estradiol 0.25 mg PO QAM STOP taking 24 hours before surgery diclofenac sodium [Voltaren] 1 dose TOPICAL UD PRN metronidazole 1 % topical gel 1 applic TOPICAL BID PRN DO NOT take the morning of surgery cyclobenzaprine 10 mg PO TID PRN losartan [Cozaar] 50 mg PO QAM spironolactone [Aldactone] 50 mg PO QAM cholecalciferol (vitamin D3) 75 mcg (3,000 unit) tablet 3,000 unit PO QAM cyanocobalamin (vitamin B-12) 1,000 mcg tablet 1,000 mcg PO QAM cetirizine 10 mg PO DAILY PRN furosemide 40 mg tablet 40 mg PO DAILY PRN metformin 500 mg tablet 1,500 mg PO BID conjugated estrogens [Premarin] 0.625 mg PV DAILY PRN Take morning of surgery With a small sip of water, OTHERWISE NOTHING TO EAT OR DRINK AFTER MIDNIGHT: aspirin [Aspir-81] 81 mg PO QAM escitalopram oxalate [Lexapro] 20 mg PO QAM fluticasone propionate 50 mcg/actuation nasal spray,suspension 2 spray INTRANASAL DAILY PRN (if needed) tramadol 50 mg tablet 50 mg PO TID PRN (okay to take up to 4 hours prior to surgery if needed) valacyclovir 1 gram tablet 1,000 mg PO DAILY PRN (if needed) doxycycline hyclate 50 mg capsule 50 mg PO DAILY PRN (if needed) lamotrigine [Lamictal] 100 mg PO QAM levothyroxine 100 mcg PO QAM Take evening before surgery cyclobenzaprine 10 mg PO TID PRN (if needed) trazodone 150 mg PO PM cetirizine 10 mg PO DAILY PRN (if needed) fluticasone propionate 50 mcg/actuation nasal spray,suspension 2 spray INTRANASAL DAILY PRN (if needed) furosemide 40 mg tablet 40 mg PO DAILY PRN (if needed) tramadol 50 mg tablet 50 mg PO TID PRN (if needed) valacyclovir 1 gram tablet 1,000 mg PO DAILY PRN (if needed) zolpidem 5 mg tablet 5 mg PO HS doxycycline hyclate 50 mg capsule 50 mg PO DAILY PRN (if needed) metformin 500 mg tablet 1,500 mg PO BID lamotrigine [Lamictal] 150 mg PO HS Other Notes If you have any questions please call us at [phone] or [phone] or [phone] or [phone]
--- NOTE | 2019-12-22 11:51 | Anesthesiology Consultation ---
Date of Service December 22, 2019 Assessment & Plan (1) Encounter for pre-operative examination: - Per assessment on 12/21: Travel screen negative. no known COVID-19 positive contacts or current COVID-19 related symptoms. Surgeon arranging preop COVID testing (plan for 01/03; [place]). Awaiting results. - Check BSG AM DOS - Patient reports hx awareness with cataracts extraction/right JERALD. Prior to right JERALD, patient had left TKA in which she reports that she did not have aw areness. She also states that she has been told that benzo's "don't work" well on her. She says that they have had difficulty placing spinals in the past but that they were successful. Unable to obtain [facility] records but per right TKA. Right TKA was done 12/26/09 at [facility] at L3-L4 + PNB. No mention of difficulty with spinal placement. Reassurance provided/questions answered. Patient advised that anesthesia with try to place spinal with least attempts as possible. Chart Review Chart Review: Acceptable Risk for Surgery and Patient seen in Pre Admission Testing Teaching & Discussion Pre-Anesthesia Teaching/Discussion Notes: Instructed NPO after midnight before surgery,except medications with 15 cc of water. Medication instructions provided according to the PAT guidelines. History Surgery Operation Date: 01/10/20 12:45 Proposed Procedures p Left Total Knee Arthroplasty - Tommy Sanders MD Height/Weight Height: 5 ft 8.5 in Weight: 106.1 kg Allergies Allergy/AdvReac Type Severity Reaction Status Date / Time buspirone Allergy Severe dyspnea Verified 12/22/19 11:53 gabapentin AdvReac Severe difficulty Verified 12/22/19 11:53 walking, pain lithium AdvReac Severe toxic/ill- Verified 12/22/19 12:02 low dose causing supratherapetic reactoin aripiprazole AdvReac Intermediate uncontrollable Verified 12/22/19 11:53 muscle movement codeine AdvReac Intermediate dyspepsia Verified 12/22/19 11:53 levofloxacin AdvReac Intermediate hematuria Verified 12/22/19 11:53 ziprasidone AdvReac Intermediate uncontrollable Verified 12/22/19 11:53 muscle movement erythromycin base AdvReac Mild N/V Verified 12/22/19 11:53 simvastatin AdvReac Mild myalgias, Verified 12/22/19 11:53 cramping Medications Home Medications Medication Instructions Recorded Confirmed Last Taken aspirin [Aspir-81] 81 mg PO QAM 08/25/18 12/20/19 Unknown cyclobenzaprine 10 mg PO TID PRN 08/25/18 12/20/19 Unknown diclofenac sodium [Voltaren] 1 dose TOPICAL UD PRN 08/25/18 12/20/19 Unknown losartan [Cozaar] 50 mg PO QAM 08/25/18 12/20/19 Unknown spironolactone [Aldactone] 50 mg PO QAM 08/25/18 12/20/19 Unknown trazodone 150 mg PO PM 08/25/18 12/20/19 Unknown cholecalciferol (vitamin D3) 75 3,000 unit PO QAM tab 10/07/18 12/20/19 Unknown mcg (3,000 unit) tablet cyanocobalamin (vitamin B-12) 1,000 mcg PO QAM #100 tab 10/07/18 12/20/19 Unknown 1,000 mcg tablet cetirizine 10 mg PO DAILY PRN 11/12/18 12/20/19 Unknown escitalopram oxalate [Lexapro] 20 mg PO QAM 11/12/18 12/20/19 Unknown dulaglutide 0.75 mg/0.5 mL 0.75 mg SQ WEEKLY ml 07/19/19 12/20/19 Unknown subcutaneous pen injector fluconazole 150 mg tablet 150 mg PO WEEKLY PRN tab 07/19/19 12/20/19 Unknown fluticasone propionate 50 2 spray INTRANASAL DAILY PRN 07/19/19 12/20/19 Unknown mcg/actuation nasal spray,suspension furosemide 40 mg tablet 40 mg PO DAILY PRN tab 07/19/19 12/20/19 Unknown tramadol 50 mg tablet 50 mg PO TID PRN tab 07/19/19 12/20/19 Unknown valacyclovir 1 gram tablet 1,000 mg PO DAILY PRN 07/19/19 12/20/19 Unknown zolpidem 5 mg tablet 5 mg PO HS 07/19/19 12/20/19 Unknown doxycycline hyclate 50 mg capsule 50 mg PO DAILY PRN 08/31/19 12/20/19 Unknown metformin 500 mg tablet 1,500 mg PO BID tab 08/31/19 12/20/19 Unknown metronidazole 1 % topical gel 1 applic TOPICAL BID PRN 08/31/19 12/20/19 Unknown Wheeled Walker #1 ea 12/16/19 12/20/19 Unknown conjugated estrogens [Premarin] 0.625 mg PV DAILY PRN 12/20/19 12/20/19 Unknown estradiol 0.25 mg PO QAM 12/20/19 12/20/19 Unknown lamotrigine [Lamictal] 100 mg PO QAM 12/20/19 12/20/19 Unknown lamotrigine [Lamictal] 150 mg PO HS 12/20/19 12/20/19 Unknown levothyroxine 100 mcg PO QAM 12/20/19 12/20/19 Unknown Past Medical History Medical History Anxiety Bipolar 1 disorder no recent issues Decreased renal function follows with nephrology (Dr. Charis Pacheco) Depression Diabetes mellitus, type 2 NIDDM Fibromyalgia Goiter H/O head and neck radiation neck region (as baby)- r/t dyspnea/swelling, patient does not have further details Hx of hepatitis C 10+ yrs ago s/p treatment (undetectable viral load since) Hx of varicose veins LLE superficial phlebitis Hypertension Hypothyroidism Insomnia Left knee DJD Osteoarthritis Sleep apnea CPAP (sometimes non-compliant) Tear of medial meniscus of left knee Thyroid nodule Exercise / Class Metabolic Activity II 4-5 Yardwork/Stairs/Walk up hill (no chest pain or sob with one flight of stairs) Past Family History Family History Father Alcoholism Stroke syndrome Mother COPD (chronic obstructive pulmonary disease) Unknown Diabetes Heart disease Hypertension Hypothyroidism Other Family history of diabetes mellitus Past Surgical History Surgical History History of cataract R/L cataracts extraction History of ovarian cystectomy History of total abdominal hysterectomy and bilateral salpingo-oophorectomy History of total hip arthroplasty LEFT Hx of tonsillectomy Hx of tooth extraction S/P knee replacement RIGHT Past Anesthesia History No Family Hx of Anesthesia Complications Patient reports hx awareness with cataracts extraction/right JERALD. Prior to right JERALD, patient had left TKA in which she reports that she did not have awareness. She also states that she has been told that benzo's "don't work" well on her. She says that they have had difficulty placing spinals in the past but that they were successful. Unable to obtain [facility] records but per right TKA. Right TKA was done 12/26/09 at [facility] at L3-L4 + PNB. No mention of difficulty with spinal placement. History of PONV No Hx of PONV and No Hx of Motion Sickness Social History Smoking Status: Never smoker Do You Dip or Chew Tobacco: No Hx Alcohol Use: No Hx Substance Use: No substance use type: does not use Review of Systems Patient denies chest pain, shortness of breath, dyspnea on exertion, joint pain, reflux, cough, wheezing, palpitations. Physical Exam Vital Signs VITALS BP 107/70 P 80 TEMP 98.8 SP02 97%RA RESP 18 PHYSICAL Full neck and c-spine range of motion. Full TMJ range of motion. TMD 3.5 finger breaths Mallampati Score 3 Dentition: upper/lower partial Lungs: clear throughout to auscultation Cardiac: regular rate and rhythm, no murmurs noted Spine: normal Carotid arteries: negative bruit Extremities: no edema Testing Laboratory Results 12/22/19 12:22 PT 10.2 Seconds (9.0-12.0) 12/22/19 12:22 INR 1.0 (0.9-1.1) 12/22/19 12:22 APTT 27.2 Seconds (21.0-31.0) 12/22/19 12:22 Hemoglobin A1c 7.0 % (4.5-5.6) H 12/22/19 12:22 Blood Type O Positive 12/22/19 12:22 Antibody Screen NEGATIVE 12/22/19 12:22 12/13/19 SODIUM 138 POTASSIUM 5.0 CHLORIDE 98 CO2 27 BUN 18 CREATININE 1.1 GLUCOSE 134 Electrocardiogram Date: 12/22/19 NSR at 74bpm. unconfirmed report* Chest X-Ray Date: 12/22/19 FINDINGS: Cardiomediastinal and hilar silhouettes are within normal limits. Ca lcified plaque of the thoracic aortic arch. There is no pneumothorax, pleural effusion, airspace consolidation or overt pulmonary edema. Degenerative changes of the shoulders and spine. IMPRESSION: No acute process. Echocardiogram Date: 09/03/17 EF 60-65%. No RWMA. No significant valvular disease.
--- NOTE | 2019-12-22 13:16 | XRay Report ---
XR chest Pre-admission PA/Lat HISTORY: 64 years-old Female pat preoperative exam. No acute chest complaints COMPARISON: Chest radiograph 09/02/2017 TECHNIQUE: PA and lateral views of the chest FINDINGS: Cardiomediastinal and hilar silhouettes are within normal limits. Calcified plaque of the thoracic ao rtic arch. There is no pneumothorax, pleural effusion, airspace consolidation or overt pulmonary mohsen a. Degenerative changes of the shoulders and spine. IMPRESSION: No acute process. ACT 112: Negative or not required by law. The above report was generated using voice recognition software. It may contain grammatical, syntax o r spelling errors. Electronically signed by: Jay Garg M.D. 12/22/2019 12:52 PM
[2019-12-22 13:20] LABS: Basophils # (auto) 0.05 K/uL (0-0.2); Basophils % (auto) 0.7 %; Eosinophils # (auto) 0.13 K/uL (0-0.5); Eosinophils % (auto) 1.9 %; Hematocrit (blood only) 40.8 % (37-47); Hemoglobin 13.5 g/dL (12.0-16.0); Immature Granulocytes # (auto) 0.01 K/uL (0.00-0.02); Immature Granulocytes % (auto) 0.1 %; Lymphocytes # (auto) 1.54 K/uL (1.2-3.4); Lymphocytes % (auto) 22.9 %; Mean Corpuscular Hemoglobin 31.1 pg (25-34); Mean Corpuscular Hgb Conc 33.1 g/dL (32-36); Mean Platelet Volume 9.6 fL (7.4-10.4); Monocytes # (auto) 0.43 K/uL (0.11-0.59); Monocytes % (auto) 6.4 %; Neutrophils # (auto) 4.56 K/uL (1.4-6.5); Platelet Count 280 K/uL (130-400); RDW Coefficient of Variation 14.1 % (11.5-14.5); RDW Standard Deviation 48.7 fL (36.4-46.3); Red Blood Count 4.34 M/uL (4.2-5.4); White Blood Count 6.72 K/uL (4.8-10.8)
[2019-12-22 13:30] LABS: Partial Thromboplastin Time 27.2 Seconds (21.0-31.0); Prothrombin Time 10.2 Seconds (9.0-12.0)
[2019-12-22 14:10] LABS: Estimated Average Glucose 154 mg/dl
--- NOTE | 2019-12-23 06:49 | Electrocardiogram Report ---
Test Reason : Blood Pressure : / mmHG Vent. Rate : 074 BPM Atrial Rate : 074 BPM P-R Int : 178 ms QRS Dur : 098 ms QT Int : 416 ms P-R-T Axes : 055 023 071 degrees QTc Int : 461 ms Normal sinus rhythm Normal ECG When compared with ECG of 03-SEP-2017 06:30, No significant change was found Confirmed by Malik Elkins ([id number]) on 12/23/2019 6:49:23 AM Referred By: Tommy Sanders Confirmed By:Malik Elkins
[2020-01-10] MEDS ORDERED: CEFAZOLIN 2000MG 2,000 MG/15 ML SYR IV SCH (06:00)
[2020-01-10] MEDS ORDERED: FAMOTIDINE 20 MG TAB PO SCH (06:00)
[2020-01-10] MEDS ORDERED: LR 60ML/HR IV SCH (06:00)
[2020-01-10] MEDS ORDERED: LR 500ML BOLUS, THEN 15ML/HR IV SCH (06:00)
[2020-01-10] MEDS ORDERED: ACETAMINOPHEN 500 MG TAB PO SCH (06:00)
[2020-01-10] MEDS ORDERED: METOCLOPRAMIDE HCL 10 MG TABLET PO SCH (06:00)
[2020-01-10] MEDS ORDERED: BUPIVACAINE LIPOSOME/PF 266 MG, BUPIVACAINE/EPINEPHRINE 50 ML, SODIUM CHLORIDE 0.9% 30 ... INFIL SCH (06:00)
[2020-01-10] MEDS ORDERED: GABAPENTIN 300 MG CAP PO SCH (06:00)
[2020-01-10] MEDS ORDERED: TRANEXAMIC ACID 1,000 MG **IV Intra-op IV SCH (06:00)
[2020-01-10] MEDS ORDERED: ePHEDrine sulfate 50 MG/ML AMP IV PRN (06:26)
[2020-01-10] MEDS ORDERED: ONDANSETRON INJ 2 MG/ML 2 ML VIAL IV PRN ×2 (06:26→09:51)
[2020-01-10] MEDS ORDERED: fentaNYL citrate 100 MCG/2 ML VIAL IV PRN (06:26)
[2020-01-10] MEDS ORDERED: ATROPINE SULFATE 0.1 MG/ML 10ML SYR IV PRN (06:26)
[2020-01-10] MEDS ORDERED: BUPIVACAINE 0.25% 30 ML VIAL ONE (06:31)
[2020-01-10] MEDS ORDERED: BUPIVACAINE 0.5 % 5 MG/1 ML PF 10ML VIAL ONE (06:31)
[2020-01-10] MEDS ORDERED: PROPOFOL IV EMULSION 10 MG/ML 20 ML VIAL IV ONE ×2 (06:34→08:21)
[2020-01-10] MEDS ORDERED: fentaNYL citrate 100 MCG/2 ML VIAL ONE (06:34)
[2020-01-10] MEDS ORDERED: LIDOCAINE HCL 2% 2 ML VIAL/AMP(20MG/ML) INFIL ONE (06:34)
[2020-01-10] MEDS ORDERED: MIDAZOLAM HCL 1 MG/ML 2ML VIAL ONE ×2 (06:34→07:19)
[2020-01-10] MEDS ORDERED: BUPIVACAINE LIPOSOME 1.3% 266 MG/20 ML VIAL ONE (06:43)
[2020-01-10] MEDS ORDERED: SODIUM CHLORIDE 0.9% PF 50 ML VIAL ONE (06:43)
[2020-01-10] MEDS ORDERED: BUPIVACAINE/EPINEPHRINE 0.25% 1:200,000 30 ML VIAL ONE (06:43)
[2020-01-10] MEDS ORDERED: BACITRACIN INJ 50,000 UNIT VIAL ONE (06:43)
--- NOTE | 2020-01-10 06:47 | History & Physical Bridge Note ---
Date of Service January 10, 2020 History & Physical Bridge Note I have examined the patient, reviewed the History & Physical and in the interval since the performance of the History & Physical I have noted the following changes of clinical significance: no changes noted
[2020-01-10] MEDS ORDERED: PHENYLEPHRINE 100MCG/ML 5ML SYR ONE (07:23)
--- NOTE | 2020-01-10 08:40 | Post Operative Brief Note ---
PG Immediate Post Op with CF Date of Surgery January 10, 2020 Pre & Post Diagnosis Operation Date: 01/10/20 07:00 Pre-Op Diagnosis: Left Knee Degenerative Joint Disease Post-Op Diagnosis: Left Knee Degenerative Joint Disease I identified the patient and participated in the time-out.: Yes Procedure Operation Date: 01/10/20 07:00 Actual Procedures p Left Total Knee Arthroplasty(Left) - Tommy Sanders MD Surgeon Tommy Sanders MD Hydro Pneumatic Tester Robyn, PAC Estimated Blood Loss 50 Findings Consistent with Post-Op Diagnosis Fluids 2000 cc Specimens Specimen Description: A. Bone and Tissue Left knee Drains Hoang Catheter (16 Fr hoang catheter inserted by ST Kesha without difficulty, draining clear yellow , anesathesis to monitor urine output during case. ) Anesthesia Type Spinal MAC Complications none Disposition Accompanied Patient To Recovery: No Disposition: Recovery Room
--- NOTE | 2020-01-10 08:53 | Operative Report ---
Post Operative Report Pre & Post Diagnosis Operation Date: 01/10/20 07:00 Pre-Op Diagnosis: Left Knee Degenerative Joint Disease Post-Op Diagnosis: Left Knee Degenerative Joint Disease I identified the patient and participated in the time-out.: Yes Procedure Operation Date: 01/10/20 07:00 Actual Procedures p Left Total Knee Arthroplasty(Left) - Tommy Sanders MD Surgeon Tommy Sanders MD A[employer] Robyn, PAC Estimated Blood Loss 50 Findings Consistent with Post-Op Diagnosis Operative findings revealed advanced left knee DJD with grade 4 disease of the medial and patellofemoral compartments. She did not have much eburnation but full-thickness cartilage loss. She had a large knee joint effusion. She had osteophytes in the medial compartment. Fluids 2000 cc. Specimens Left knee sent for pathology. Drains None. Anesthesia Type Spinal MAC Complications none Disposition Accompanied Patient To Recovery: No Disposition: Recovery Room Indications Patient is a 64-year-old female whose had a history of multiple joint operations in the past. Over the past year to year and a half she is developed increased pain discomfort in her left knee. She is failed conservative measures. X-rays reveal advanced medial compartment arthritis. She elected to a total knee arthroplasty. Description of Procedure Operative implants consist of: 1 Biomet Vanguard size 67.5 left posterior stabilized femoral component. 2. Biomet size 71 tibial tray. 3. 10 mm posterior stabilized polyethylene insert. 4. 31 x 8 all poly-patella. Patient was taken to the operating identified and placed on the operating table supine position protectors were properly padded. IV antibiotics prescribed by anesthesia team. Spinal anesthetic and abductor canal block had been provided in the holding area. Lopez catheter was placed in sterile fashion. Left thigh turn was then placed in the left lower extremities and prepped and draped in usual sterile fashion. The left leg was elevated exsanguinated with use of an Esmarch and turns placed at 3 mmHg. An anterior approach to the left knee was then performed to longitudinal incision centered over the patella. Sharp dissection got through subcutaneous tissue down to the extensor mechanism. A medial parapatellar arthrotomy incision was made. Some subperiosteal dissection was carried out medially. The fat pad was resected from each patella tendon. Lateral patellofemoral ligament was released. Patella was subluxated laterally and the knee was flexed. The osteophytes were taken off distal femur. The ACL and PCL were then released from the distal femur and the tibia subluxate anteriorly. External tibial alignment jig was then placed in the interface the tibia and adjusted 14 mm medially. Proximal tibial cut was made remove about 2 to 3 mm of bone from the medial side. Some osteophytes were taken off medially. The tibia was then sized to a size 71. Attention drawn the femur. The distal femur was entered with a sharp drill. Intramedullary canal was suction. A left 5 degree valgus cutting guide was placed. The distal femoral cutting block was pinned in place. Distal femoral cut was made to take an additional 3 mm of bone off distal femur. Femur was then sized to a size 67.5. The AP cutting block was pinned parallel to the epicondylar axis which was 4 degrees of external rotation. The anterior cut, anterior chamfer, posterior cut, posterior chamfer cuts were made. Box cutting guide was placed in just slight lateral box cut was made. The knee was flexed. The remnants of medial lateral menisci were excised. The osteophytes were taken off the posterior aspect the femur. A trial femoral component was placed. The tibial tray was pinned in maximum external rotation and the drill and stem punch used to create defect in proximal to for the tibial tray. The knee was then trialed and the 10 mm insert fit most appropriately. Attention drawn the patella. The patella was cleaned of all soft tissues. Patella thickness measured 22 mm in thickness was cut down to 14. Sized to a size 31 patella. Locals were drilled for 31 patella. The lateral osteophyte is moved. Patella button was placed. Knee was taken through range of motion and the patella tracked nicely with no thumbs test. Attention drawn to placing permanent components. All trial components were removed. Bone plug was placed in the distal femur limit blood loss put a double batch Pal[place]os G cement was mixed. Biomet Vanguard size 67.5 left posterior stabilized femoral component, size 71 tibial tray, a 10 mm posterior stabilized polyethylene insert, and a 31 x 8 all poly-patella were then cemented in place. The knee was brought out into full extension total cement hardened. Final cement check was then performed. The pericapsular tissues were injected with total of 100 cc of combination of 20 cc of Exparel, 30 cc normal saline, 50 cc of quarter percent Marcaine with epinephrine. Patient did receive 1 g tranexamic acid per the tech was then let down for final tourniquet time of 52 minutes. Hemostasis assured use electrocautery. The wounds once again irrigated. The extensor mechanism closed with combination 1 PDS suture #1 Vicryl suture in a [id number] fashion. Extensor mechanism checked found to be intact the subcutaneous tissue then closed with 2 Dexon suture in a buried interrupted fashion skin was closed skin tony. Leg was then cleaned dried a sterile dressing composed of Xeroform, 4 x 4's, sterile cast padding, and Javid bandage were applied. Patient then transferred to the recovery room in stable condition. The patient tolerated the procedure well there are no complications. Koby Carlson, my physician project administrative assistant, was present for the entire procedure. His assistance was required and essential to proper patient positioning, prepping and draping, surgical exposure, performing the technical details of the operation, placement of the implants, closure of the wound, and placement of the sterile bandage. I attest to the content of the Intraoperative Record and any orders documented therein. Any exceptions are noted below.
--- NOTE | 2020-01-10 09:22 | XRay Report ---
LEFT KNEE 2 VIEWS History: Left total knee arthroplasty. Degenerative arthritis. Postop. FINDINGS: The patient is status post a left total knee arthroplasty. The hardware is intact. No fract ure or dislocation. Skin tony are in place. IMPRESSION: Left total knee arthroplasty. No evidence for hardware complication. ACT 112: Negative or not required by law. Electronically signed by: Prashanth Bansal M.D. 01/10/2020 9:21 AM
[2020-01-10] MEDS ORDERED: CETIRIZINE HCL 10 MG TABLET PO PRN (09:51)
[2020-01-10] MEDS ORDERED: METOCLOPRAMIDE HCL INJ 5 MG/ML 2 ML VIAL IV PRN (09:51)
[2020-01-10] MEDS ORDERED: ALUMINUM/MAGNESIUM SUSP 30 ML UDC PO PRN (09:51)
[2020-01-10] MEDS ORDERED: DEXTROSE 50% 50 ML SYRINGE IV PRN (09:51)
[2020-01-10] MEDS ORDERED: GLUCAGON FOR INJ 1 MG VIAL SQ PRN (09:51)
[2020-01-10] MEDS ORDERED: FLUTICASONE PROPIONATE NA SPR 16 GM BTL NAE PRN (09:51)
[2020-01-10] MEDS ORDERED: NALOXONE HCL 0.4 MG/1 ML VIAL/CARP IV PRN (09:51)
[2020-01-10] MEDS ORDERED: MAGNESIUM HYDROXIDE SUSP 30 ML UDC PO PRN (09:51)
[2020-01-10] MEDS ORDERED: GLUCOSE 10 TABS/TUBE PO PRN (09:51)
[2020-01-10] MEDS ORDERED: PREMARIN VAG CRM 14 APPLN/30 GM TUBE PV PRN (09:51)
[2020-01-10] MEDS ORDERED: CYCLOBENZAPRINE HCL 10 MG TAB PO PRN (09:51)
[2020-01-10] MEDS ORDERED: GLUCOSE 40% GEL 15 GM TUBE PO PRN (09:51)
[2020-01-10] MEDS ORDERED: CARBOHYDRATES FOR HYPOGLYCEMIA PO PRN (09:51)
[2020-01-10] MEDS ORDERED: FUROSEMIDE 40 MG TAB PO PRN (09:51)
[2020-01-10] MEDS ORDERED: bisacodyL 10 MG SUPP PR PRN (09:51)
[2020-01-10] MEDS: SODIUM CHLORIDE 0.9% 1000ML 1,000 ML IV SCH ×2 (10:00→16:38)
[2020-01-10] MEDS ORDERED: PHARMACY GLYCEMIC MGMT CONSULT PRN (10:27)
[2020-01-10] MEDS ORDERED: KETOROLAC 30 MG/ML VIAL IV SCH (11:00)
[2020-01-10] MEDS: ASPIRIN 81 MG ECTAB PO SCH ×2 (11:09→20:29)
[2020-01-10] MEDS: ESCITALOPRAM OXALATE 20 MG TAB PO SCH (11:09)
[2020-01-10] MEDS: MULTIVITAMIN TAB PO SCH (11:09)
[2020-01-10] MEDS: lamoTRIgine 100 MG TAB PO SCH (11:09)
[2020-01-10] MEDS: SPIRONOLACTONE 25 MG TAB PO SCH (11:10)
[2020-01-10] MEDS: LOSARTAN POTASSIUM 50 MG TAB PO SCH (11:10)
[2020-01-10] MEDS: estradioL 1 MG TAB PO SCH (11:10)
[2020-01-10] MEDS: DOCUSATE SODIUM 100 MG CAP PO SCH ×2 (11:10→20:31)
[2020-01-10] MEDS: CYANOCOBALAMIN 500 MCG TABLET (VITAMIN B-12) PO SCH (11:11)
[2020-01-10] MEDS: CHOLECALCIFEROL 1,000 UNITS 25 MCG TAB PO SCH (11:11)
[2020-01-10] MEDS: TAPENTADOL HCL ER 50 MG TABCR PO SCH ×2 (11:19→20:28)
[2020-01-10] MEDS: KETOROLAC TROMETHAMINE 15 MG/ML VIAL IV SCH ×3 (11:23→22:29)
[2020-01-10] MEDS ORDERED: NovoLIN-N (NPH) PER UNIT CHARGE SQ SCH (11:30)
--- NOTE | 2020-01-10 11:33 | Pharmacy Report ---
Pharmacy Glycemic Short Note 2 - Date of Service January 10, 2020 - Glycemic Short BSG Results (Last 24 hours): 01/10/20 01/10/20 05:46 08:49 POC Glucose 130 H 136 H OUTPATIENT ANTIDIABETIC REGIMEN: * Metformin 1,000mg PO QAM + 500mg PO QPM ASSESSMENT: * 64yo T2DM female with excellent outpatient control per recent A1c * Pt is maintained on oral antidiabetic agents as an outpatient * Oral agents are not recommended for inpatient use d/t drug interactions, changing PO intake, and difficulty titrating for acute hyper/hypoglycemia. ADA recommends re-initiating outpatient oral agents 1-2 days prior to discharge if/when appropriate if they were held on admission. * Will hold oral agents for admission and utilize SQ basal bolus insulin regimen which is the recommended regimen for inpatient glycemic control. * Will initiate weight based insulin dosing for insulin rell patient and titrate based on BSG trends. * No steroids ordered to complicate glycemic control * Titrate based on BSG trends * Goal is to maintain BSGs <200 mg/dl (ideally <150 mg/dl) to prevent post op infectious complications PLAN FOR INPATIENT GLYCEMIC CONTROL: * Hold outpatient oral diabetes medications * Basal insulin * NPH 15 units SQ x 1 dose today. Will re-evaluate tomorrow AM * Bolus insulin * NovoLog per scale ACHS or Q6hrs while NPO * Goal Range: Low 110 mg/dL - High 140 mg/dL * Correction Factor: 20 mg/dL/unit * Nutritional / Prandial insulin per carb ratio of 1 unit per 7 grams CHO consumed PLAN FOR DISCHARGE: * A1c is in goal range for patient based on age/co-morbidities. No changes needed to outpatient regimen.
[2020-01-10] MEDS: INSULIN ASPART 100 UNITS/ML 3 ML PEN SC SCH ×4 (11:37→20:51)
[2020-01-10] MEDS: OXYCODONE HCL IR 5 MG TAB (IMMEDIATE RELEASE) PO PRN ×2 (12:17→19:09)
--- NOTE | 2020-01-10 13:45 | Anesthesiology Progress Note ---
Date of Service January 10, 2020 Anesthesia Post Procedure Vital Signs Vital Signs: Temp Pulse Pulse Pulse Resp BP BP 01/10/20 12:21 80 16 130/72 01/10/20 11:35 77 16 129/81 01/10/20 10:37 77 16 123/75 01/10/20 10:05 36.6 C 76 16 108/67 01/10/20 09:35 36.4 C L 76 16 118/68 01/10/20 09:15 36.4 C L 75 14 121/67 01/10/20 09:05 79 15 115/71 01/10/20 08:55 78 12 108/58 L 01/10/20 08:46 36.3 C L 84 14 95/56 L 01/10/20 06:37 36.9 C 83 18 173/95 H 01/10/20 06:19 36.8 C 81 18 148/81 H Pulse Ox 01/10/20 12:21 100 01/10/20 11:35 100 01/10/20 10:37 01/10/20 10:05 01/10/20 09:35 01/10/20 09:15 01/10/20 09:05 01/10/20 08:55 01/10/20 08:46 01/10/20 06:37 01/10/20 06:19 98 Transfer of Care Handoff Completed per policy Notes Mental Status: alert / awake / arousable and participated in evaluation Patient Amnestic to Procedure: Yes Nausea / Vomiting: adequately controlled Pain: adequately controlled Airway Patency, RR, SpO2: stable & adequate BP & HR: stable & adequate Hydration State: stable & adequate Neuraxial Anesthesia: was administered and sensory block is resolving Anesthetic Complications: no major complications apparent and Pt Satisfied with anesthetic care
[2020-01-10] MEDS: ACETAMINOPHEN 500 MG TAB PO SCH ×2 (14:12→22:29)
[2020-01-10] MEDS: CEFAZOLIN 2000MG 2,000 MG/15 ML SYR IV SCH ×2 (14:45→22:29)
[2020-01-10] MEDS ORDERED: TRANEXAMIC ACID / 0.7% NACL 1,000 MG/100 ML BAG IV SCH (14:45)
[2020-01-10] MEDS: HYDROmorphone INJ 0.5 MG/0.5 ML SYR IV PRN (15:28)
[2020-01-10] MEDS: Scopolamine CHECK PATCH PLACEMENT SCH ×2 (15:31→23:59)
[2020-01-10] MEDS: ASCORBIC ACID 500 MG TAB PO SCH (17:07)
[2020-01-10] MEDS: FERROUS GLUCONATE 324 MG TAB PO SCH (17:07)
--- NOTE | 2020-01-10 19:51 | Progress Notes ---
DATE: 01/10/2020 SUBJECTIVE: A 64-year-old white female postop from a left knee replacement. She is doing well. Pain is very well controlled so far. No chest pain or shortness of breath. Not feeling dizzy or lightheaded. OBJECTIVE: VITAL SIGNS: Temperature 37.1. Vital signs are stable. GENERAL: Shows a pleasant, middle-aged female. She is sitting up in bed and looks pretty comfortable this afternoon. LUNGS: Clear to auscultation. HEART: Has a regular rate and rhythm. ABDOMEN: Soft, nontender, nondistended. EXTREMITIES: Grossly neurovascularly intact except as follows: Examination of the left leg reveals the dressing to be clean, dry and intact. Leg is well aligned. She can dorsiflex and plantarflex her foot appropriately. She is neurologically intact. X-RAYS: X-rays of the left knee from recovery room are reviewed. It shows a left cemented posterior stabilized total knee arthroplasty. Components looked to be in good position. No signs of problems. ASSESSMENT: A 64-year-old white female postoperative from a left knee replacement, doing well. Pain is controlled. She is neurologically intact. PLAN: 1. DVT prophylaxis including thigh-high TEDs, SCDs, and aspirin twice a day. 2. PT/OT. Weight bear as tolerated. Left total knee protocol. 3. Pain control, doing well with current pain regimen. 4. IV antibiotics x24 hours. 5. Disposition: Plan to discharge to home with some home health once adequately recovered and medically stable and pain controlled.
[2020-01-10] MEDS: lamoTRIgine 25 MG TAB PO SCH (20:30)
[2020-01-10] MEDS: SENNA 8.6 MG TAB PO SCH (20:31)
[2020-01-10] MEDS: TRAZODONE HCL 50 MG TAB PO SCH (22:28)
[2020-01-10] MEDS: ZOLPIDEM TARTRATE 5 MG TAB PO SCH (22:29)
[2020-01-11] MEDS: HYDROmorphone INJ 0.5 MG/0.5 ML SYR IV PRN ×3 (00:06→14:27)
[2020-01-11] MEDS: INSULIN ASPART 100 UNITS/ML 3 ML PEN SC SCH ×6 (00:32→21:16)
[2020-01-11] MEDS: ACETAMINOPHEN 500 MG TAB PO SCH ×3 (05:26→21:19)
[2020-01-11] MEDS: KETOROLAC TROMETHAMINE 15 MG/ML VIAL IV SCH ×4 (05:26→22:18)
[2020-01-11] MEDS: LEVOTHYROXINE SODIUM 100 MCG TABLET PO SCH (05:26)
[2020-01-11 06:28] LABS: Hematocrit (blood only) 32.9 % (37-47); Hemoglobin 10.8 g/dL (12.0-16.0); Mean Corpuscular Hemoglobin 30.9 pg (25-34); Mean Corpuscular Hgb Conc 32.8 g/dL (32-36); Mean Corpuscular Volume 94.3 fL (80-100); Mean Platelet Volume 9.1 fL (7.4-10.4); Platelet Count 212 K/uL (130-400); RDW Standard Deviation 48.1 fL (36.4-46.3); Red Blood Count 3.49 M/uL (4.2-5.4); White Blood Count 7.26 K/uL (4.8-10.8)
[2020-01-11 06:58] LABS: BUN Creatinine Ratio 12.4 (10-20); Calcium 8.6 mg/dl (8.5-10.1); Creatinine Clr Calc Pharmacy 78.2 ml/min; Est GFR (African American) 75.2; Est GFR (Non-African American) 64.9; Potassium 4.3 mmol/L (3.5-5.1)
[2020-01-11] MEDS: OXYCODONE HCL IR 5 MG TAB (IMMEDIATE RELEASE) PO PRN ×3 (07:31→19:02)
[2020-01-11] MEDS: Scopolamine CHECK PATCH PLACEMENT SCH ×3 (07:33→23:32)
[2020-01-11] MEDS: FERROUS GLUCONATE 324 MG TAB PO SCH ×2 (07:34→17:19)
[2020-01-11] MEDS: ASCORBIC ACID 500 MG TAB PO SCH ×2 (07:34→17:19)
--- NOTE | 2020-01-11 08:10 | Progress Notes ---
DATE: 01/11/2020 SUBJECTIVE: A 64-year-old white female postop day #1 from a left knee replacement. She is doing pretty well. Some pain, but controlled. No chest pain or shortness of breath. Not feeling dizzy or lightheaded. OBJECTIVE: VITAL SIGNS: Temperature 37.2. Vital signs stable. GENERAL: Shows a pleasant, middle-aged female. She is lying in bed, looks pretty comfortable this morning. EXTREMITIES: Examination of the left leg reveals the leg to be well aligned. Dressing is clean, dry and intact. She can dorsiflex and plantarflex her foot appropriately. She is neurologically intact. LABORATORY DATA: Hemoglobin is 10.8. Hematocrit 32.9. Electrolytes are stable. ASSESSMENT: A 64-year-old white female postop day #1 from left knee replacement, doing pretty well. Pain is controlled. She is neurologically intact. PLAN: 1. DVT prophylaxis including thigh-high TEDs, SCDs, and aspirin twice a day. 2. PT/OT. Weight bear as tolerated. Left total knee protocol. 3. Pain control, doing well with current pain regimen. 4. Disposition: She is planning to be discharged home with some home health once adequately recovered and medically stable and getting around okay and pain controlled.
[2020-01-11] MEDS: lamoTRIgine 100 MG TAB PO SCH (09:03)
[2020-01-11] MEDS: SPIRONOLACTONE 25 MG TAB PO SCH (09:03)
[2020-01-11] MEDS: ESCITALOPRAM OXALATE 20 MG TAB PO SCH (09:03)
[2020-01-11] MEDS: MULTIVITAMIN TAB PO SCH (09:03)
[2020-01-11] MEDS: DOCUSATE SODIUM 100 MG CAP PO SCH ×2 (09:03→20:07)
[2020-01-11] MEDS: ASPIRIN 81 MG ECTAB PO SCH ×2 (09:04→20:09)
[2020-01-11] MEDS: CYANOCOBALAMIN 500 MCG TABLET (VITAMIN B-12) PO SCH (09:04)
[2020-01-11] MEDS: LOSARTAN POTASSIUM 50 MG TAB PO SCH (09:04)
[2020-01-11] MEDS: estradioL 1 MG TAB PO SCH (09:04)
[2020-01-11] MEDS: CHOLECALCIFEROL 1,000 UNITS 25 MCG TAB PO SCH (09:04)
[2020-01-11] MEDS: TAPENTADOL HCL ER 50 MG TABCR PO SCH ×2 (09:11→20:06)
[2020-01-11] MEDS: METFORMIN HCL 500 MG TAB PO SCH (09:11)
--- NOTE | 2020-01-11 14:07 | Pharmacy Report ---
Pharmacy Glycemic Short Note 2 - Date of Service January 11, 2020 - Glycemic Short BSG Results (Last 24 hours): 01/10/20 01/10/20 01/10/20 17:10 20:43 23:58 Glucose POC Glucose 98 126 H 110 H 01/11/20 01/11/20 01/11/20 03:53 06:04 08:17 Glucose 125 H POC Glucose 148 H 153 H 01/11/20 12:13 Glucose POC Glucose 100 H OUTPATIENT ANTIDIABETIC REGIMEN: * Metformin 1,000mg PO QAM + 500mg PO QPM INPATIENT GLYCEMIC CONTROL: ASSESSMENT: 01/08: * Patient had excellent glycemic control over the past 24 hours. * She is tolerating an oral diet and renal function is at baseline, therefore I will resume metformin and remove carb ratio from novolog. * No further NPH required per patient received a one time dose of steroids. 01/09: * 64yo T2DM female with excellent outpatient control per recent A1c * Pt is maintained on oral antidiabetic agents as an outpatient * Oral agents are not recommended for inpatient use d/t drug interactions, changing PO intake, and difficulty titrating for acute hyper/hypoglycemia. ADA recommends re-initiating outpatient oral agents 1-2 days prior to discharge if/when appropriate if they were held on admission. * Will hold oral agents for admission and utilize SQ basal bolus insulin regimen which is the recommended regimen for inpatient glycemic control. * Will initiate weight based insulin dosing for insulin rell patient and titrate based on BSG trends. * No steroids ordered to complicate glycemic control * Titrate based on BSG trends * Goal is to maintain BSGs <200 mg/dl (ideally <150 mg/dl) to prevent post op infectious complications PLAN FOR INPATIENT GLYCEMIC CONTROL: * RESUME metformin 1000 mg qAM and 500 mg qPM * Basal insulin * none * Bolus insulin - remove carb coverage * NovoLog per scale ACHS or Q6hrs while NPO * Goal Range: Low 110 mg/dL - High 140 mg/dL * Correction Factor: 20 mg/dL/unit PLAN FOR DISCHARGE: * A1c is in goal range for patient based on age/co-morbidities. No changes neede d to outpatient regimen.
[2020-01-11] MEDS ORDERED: METFORMIN HCL 500 MG TAB PO SCH (16:30)
[2020-01-11] MEDS: SENNA 8.6 MG TAB PO SCH (20:07)
[2020-01-11] MEDS: lamoTRIgine 25 MG TAB PO SCH (20:08)
[2020-01-11] MEDS: ZOLPIDEM TARTRATE 5 MG TAB PO SCH (22:17)
[2020-01-11] MEDS: TRAZODONE HCL 50 MG TAB PO SCH (22:17)
[2020-01-12] MEDS: ACETAMINOPHEN 500 MG TAB PO SCH ×2 (05:30→13:03)
[2020-01-12] MEDS: LEVOTHYROXINE SODIUM 100 MCG TABLET PO SCH (05:30)
[2020-01-12] MEDS: KETOROLAC TROMETHAMINE 15 MG/ML VIAL IV SCH (05:30)
--- NOTE | 2020-01-12 07:55 | Progress Notes ---
DATE: 01/12/2020 SUBJECTIVE: A 64-year-old white female postop day 2 from a left knee replacement. She is doing pretty well. Had quite a bit of pain last evening after therapy but doing better this morning. No chest pain or shortness of breath. Not feeling dizzy or lightheaded. OBJECTIVE: VITAL SIGNS: Temperature 37.0. Vital signs stable. GENERAL: Shows a pleasant, middle-aged female. I had to wake her this morning. EXTREMITIES: Examination of the left leg reveals the leg to be well aligned. Dressing is clean, dry, and intact. Calf is soft and supple. She is neurologically intact. ASSESSMENT: A 64-year-old white female postop day 2 from a left knee replacement, doing pretty well. Pain is controlled. She is neurologically intact. PLAN: 1. DVT prophylaxis including thigh-high TEDs, SCDs, and aspirin twice a day. 2. PT/OT. Weight bear as tolerated. Left total knee protocol. 3. Pain control, doing well with current pain regimen. 4. Disposition: Plan to discharge to home with some home health later today.
[2020-01-12] MEDS: METFORMIN HCL 500 MG TAB PO SCH (08:20)
[2020-01-12] MEDS: OXYCODONE HCL IR 5 MG TAB (IMMEDIATE RELEASE) PO PRN ×2 (08:21→14:03)
[2020-01-12] MEDS: Scopolamine CHECK PATCH PLACEMENT SCH (08:23)
[2020-01-12] MEDS: ESCITALOPRAM OXALATE 20 MG TAB PO SCH (08:24)
[2020-01-12] MEDS: CHOLECALCIFEROL 1,000 UNITS 25 MCG TAB PO SCH (08:24)
[2020-01-12] MEDS: LOSARTAN POTASSIUM 50 MG TAB PO SCH (08:24)
[2020-01-12] MEDS: MULTIVITAMIN TAB PO SCH (08:24)
[2020-01-12] MEDS: ASPIRIN 81 MG ECTAB PO SCH (08:24)
[2020-01-12] MEDS: CYANOCOBALAMIN 500 MCG TABLET (VITAMIN B-12) PO SCH (08:25)
[2020-01-12] MEDS: SPIRONOLACTONE 25 MG TAB PO SCH (08:25)
[2020-01-12] MEDS: estradioL 1 MG TAB PO SCH (08:26)
[2020-01-12] MEDS: lamoTRIgine 100 MG TAB PO SCH (08:27)
[2020-01-12] MEDS: FERROUS GLUCONATE 324 MG TAB PO SCH (08:27)
[2020-01-12] MEDS: ASCORBIC ACID 500 MG TAB PO SCH (08:27)
[2020-01-12] MEDS: DOCUSATE SODIUM 100 MG CAP PO SCH (08:27)
[2020-01-12] MEDS: TAPENTADOL HCL ER 50 MG TABCR PO SCH (08:34)
[2020-01-12] MEDS: INSULIN ASPART 100 UNITS/ML 3 ML PEN SC SCH (09:27)
--- NOTE | 2020-01-13 08:46 | Discharge Summary ---
Date of Service January 13, 2020 Admission HPI Per Admitting Provider Documented in the H & P Admission Exam (Per Admitting) Constitutional Documented in the H & P Discharge Data Consultations 01/10/20 09:51 Consult Case Management - Discharge Planning Routine Procedures Performed Operation Date: 01/10/20 07:00 Actual Procedures p Left Total Knee Arthroplasty(Left) - Tommy Sanders MD Hospital Course (1) Status post total left knee replacement: This patient is a 64 year old female admitted on 01/10/20 and underwent total knee arthroplasty. She tolerated the procedure well and there were no complications. Transferred to the PACU post op and later to the orthopedic floor for further care. She was given ancef for antibiotic prophylaxis. She was also given KHARI stockings, SCDs, and aspirin for DVT prophylaxis. Hemoglobin, hematocrit, and vital signs were monitored during her hospital stay and remained stable. Did not require any blood transfusions. There were no complications during her hospital stay. By post op day #2 the patient was tolerating a diabetic diet, pain was reasonably controlled with oral pain medicine, and she was participating in physical therapy. On post op day #2 the patient was discharged home and set up with home health care. She was given printed discharge instructions including prescriptions for extra strength tylenol, aspirin, and oxycodone. Continue physical therapy, weight bearing as tolerated. Continue KHARI stockings. Follow up approximately 2 weeks post op or sooner if there are problems or concerns. Coding Level of Care Code None Diagnoses Status post total left knee replacement Z96.652
== END 2020-01-12 14:00 | disposition home health service (06) ==
LOC: ASU 05:26 → 3E 05:26